=== PATIENT | female | born 2000 | race Caucasian/White ===

== ENCOUNTER 2025-01-04 12:42 | Emergency (ER) | payer OTHER, SELFPAY ==
[2025-01-04 12:48] VITALS: BP 148/65; PULSE 80; RESP 20; TEMP 37.1; O2SAT 100
--- NOTE | 2025-01-04 12:51 | ED.WOUNDLAC ---
HPI - Wound/Laceration General Chief Complaint: Wound/Laceration Stated Complaint: Wound Check Time Seen by Provider: 01/04/25 12:53 Source: patient Mode of arrival: ambulatory Limitations: no limitations History of Present Illness HPI narrative: 24 y/o female presented for concern of an itchy red rash and discharge around her new site. Says she had the surgery 10 days ago, and noticed itching and foul odor to discharge yesterday. Denies significant pain, vomiting, or fever. Says she has chronic nausea r/t gall bladder. Pt has no plan to follow up with the Obgyn who performed the surgery, stating he is in [place] and she cannot get transportation there. Related Data Home Medications ?Medication ?Instructions ?Recorded ?Confirmed ?Last Taken ?Type docusate sodium 100 mg capsule mg PO 01/04/25 Unknown History famotidine 40 mg tablet mg 01/04/25 Unknown History ferrous sulfate 325 mg (65 mg mg 01/04/25 Unknown History iron) tablet (FeroSul) hydrocodone 5 mg-acetaminophen 325 tablet 01/04/25 Unknown History mg tablet ibuprofen 600 mg tablet mg 01/04/25 Unknown History Allergies Allergy/AdvReac Type Severity Reaction Status Date / Time No Known Allergies Allergy Verified 01/04/25 12:55 Review of Systems Review of Systems: CONSTITUTIONAL: Denies body aches, fever, chills, or sweats. EYES: Denies visual changes, redness, or discharge. ENT: Denies rhinorrhea, congestion CARDIOVASCULAR: Denies chest pain, palpitations, or edema. RESPIRATORY: Denies cough or dyspnea. GASTROINTESTINAL: Denies abdominal pain, nausea, vomiting, or diarrhea. SKIN: per HPI MUSCULOSKELETAL: Denies back pain, joint pain, or myalgia. NEUROLOGIC: Denies headache, numbness, tingling, or weakness. PMFSH Comments At time of signature, I have reviewed and agree with nursing past medical, surgical, social and family history unless otherwise noted. Please see nursing chart for further information. There is no relevant family history pertinent to the presenting complaint Exam Narrative: GENERAL: Well-appearing HEAD: Normocephalic, atraumatic. EYES: conjunctivae clear, and EOMI. ENT: Mucous membranes moist. Oropharynx without edema, erythema or lesions. NECK: Supple. No lymphadenopathy CHEST: Clear to auscultation. HEART: Regular rate and rhythm. SKIN: Warm, dry. low mid abdomen with surgical incision c/w reported c--section, scant serous malodorous drainage from incision, light erythema extending from the incision approx 5cm x 14 cm across low abd, firm, c/w cellulitis. Erythematous excoriated area distal to surgical site approx 8cm x 3 cm c/w yeast. NEURO: Alert and oriented x3. Course Course Emergency Course: Patient is aware of diagnosis, understands and agrees to treatment plan. Anticipatory guidance given. Patient agrees to follow-up as directed and is aware of reasons to seek care at the emergency department. Portions of this record may have been created with voice recognition software Level of Care: Express Care Visit Vital Signs Vital signs: Reviewed Transfer Transfered to: [facility] Transportation: Other ( Private vehicle) Transfer rationale: Pt is agreeable to transfer. Requests transfer to [facility] via private vehicle. Risks of transportation reviewed with pt including injury, worsening of condition and . v/u. Sister will be driving pt; Report called to hospital, spoke with Kirk HENRY, Dr Berger, accepting physician. Pt is in stable condition at time of transfer. Advised to remain NPO and go directly to the hospital. MDM - Wound/Laceration MDM Narrative Medical decision making narrative: Pt presented with possible infection and rash to c--section site. She does not have pcp or obgyn. Advised ER transfer. Differential Diagnosis Differential diagnosis: Likely other (cellulitis, abscess, candidiasis, folliculitis, impetigo) Discharge Plan Discharge Clinical Impression: Cellulitis Patient Disposition: Acute Care Hospital Condition: Stable Patient Language: Bruneian Follow-up/Referrals: PHYSICIAN,DEGREASER [Primary Care Provider] - Time of Disposition: 13:13
--- OUTSIDE RECORDS SUMMARY | 2025-01-04 13:38 | XMS_ITS | Clinical Summary ---
Author Organization [facility] Address [address] [place] [address] Care Team Providers Care Senior Hydrogeologist Name Role Phone Unknown, Notinfile Primary Care Provider Unavail able Allergies No known active allergies Medications aspirin 81 mg chewable tablet Take 1 tablet (81 mg total) by mouth daily Active vit 02-pslc-fovba-d ng 27mg iron- 800 mcg-250 mg capsule Take 1 capsule by mouth daily Active famotidine (PEPCID) 40 mg tablet Take 1 tablet (40 mg total) by mouth daily Active sucralfate (CARAFATE) 1 gram tablet Take 1 tablet (1 g total) by mouth 4 (four) times a day as needed (gallbladder pain) Active docusate sodium (COLACE) 100 mg capsuleIndicati ons:constipatio n Take 1 capsule (100 mg total) by mouth 2 (two) times a day 14 capsule 12/25/2024 Active ferrous sulfate 325 mg (65 mg of elemental iron) tabletIndicatio ns:Iron Deficiency Anemia Take 1 tablet (325 mg total) by mouth daily 30 tablet 2 12/26/2024 Active HYDROcodone-matias taminophen (NORCO) 5-325 mg per tabletIndicatio ns:Pain Take 1 tablet by mouth every 4 (four) hours as needed for pain 20 tablet 12/25/2024 Active ibuprofen (ADVIL,MOTRIN) 600 mg tablet Take 1 tablet (600 mg total) by mouth every 6 (six) hours as needed for pain 40 tablet 12/25/2024 Active Active Problems Problem Noted Date Diagnosed Date Encounter for elective induction of labor 2024 Encounters Date Type Department Care Team Description 12/23/2024 4:00 PM CDT - 12/23/2024 5:40 [place] [address] Nito Talley DO SECTION 12/23/2024 3:20 [place] [address] Stanley Erwin MD Lawrence, Ashley Nicole, CRNA 12/22/2024 8:10 PM CDT - 12/25/2024 1:30 PM [place] [address] Vita Louis MD Discharge Disposition: Discharge to home or self care 12/21/2024 1:30 PM CDT - 12/21/2024 11:59 PM CDT Hospital Encounter [address] [address] Discharge Disposition: Discharge to home or self care 12/17/2024 1:20 PM CDT - 12/17/2024 5:40 PM CDT Hospital Encounter [address] [address] Lesley Hazel MD Hardman, Jamie Lynnette, MD Discharge Disposition: Discharge to home or self care 12/07/2024 11:44 PM CDT - 12/08/2024 1:30 AM CDT Hospital Encounter [facility] and [address] [address] Lesley Hazel MD Discharge Disposition: Discharge to home or self care 12/04/2024 6:50 PM CDT - 12/04/2024 8:35 PM CDT Hospital Encounter [address] [address] Lesley Hazel MD Discharge Disposition: Discharge to home or self care from Last 3 Months Medical History Medical History Date Comments Gallstones Asthma allergy-induced, last use of albuterol inhaler more than 1 year ago Social History Tobacco Use Types Packs/Day Years Used Date Smoking Tobacco: Never Smokeless Tobacco: Never Tobacco Cessation:Counseling Given: Not Answered Social Connection and Isolation Panel [NHANES] A nswer Date Recorded In a typical week, how many times do you talk on the phone with family, friends, or neighbors? Three times a week 12/23/19 How often do you get togethe r with friends or relatives? Three times a week 12/22/2024 How often do you attend chur ch or rastafarian services? Never 12/22/2024 Do you belong to any clubs o r organizations such as jain groups, unions, fraternal or athletic groups, or school groups? No 12/22/2024 How often do you attend meet ings of the clubs or organizations you belong to? Never 12/22/2024 Are you , , di vorced, , never , or living with a partner? Living with partner 12/22/2024 AUDIT-C Answer Date Recorded Q1: How often do you have a drink containing alcohol? Never 12/22/2024 Q2: How many drinks containi ng alcohol do you have on a typical day when you are drinking? Patient does not drink Q3: How often do you have si x or more drinks on one occasion? Never 12/22/2024 Overall Financial Resource Strain (CARDIA) Answe r Date Recorded How hard is it for you to pa y for the very basics like food, housing, medical care, and heating? Not hard at all 12/22/2024 PHQ-2 Answer Date Recorded PHQ-2 Total Score (If total score is 3 or more points, staff should administer the PHQ-9) 0 12/17/2024 [facility] - Occupational Stress Questionnaire Answer Date Recorded Do you feel stress - tense, restless, nervous, or anxious, or unable to sleep at night because your mind is troubled all the time - these days? Not at all 12/22/2024 Exercise Vital Sign Answer Date Recorde d On average, how many days pe r week do you engage in moderate to strenuous exercise (like a brisk walk)? 0 days 12/22/2024 On average, how many minutes do you engage in exercise at this level? 0 min 12/22/2024 Hunger Vital Sign Answer Date Recorded Within the past 12 months, y ou worried that your food would run out before you got the money to buy more. Never true 12/23/19 25 Within the past 12 months, t he food you bought just didn't last and you didn't have money to get more. Never true 12/22/2024 PRAPARE - Transportation Answer Date Re corded In the past 12 months, has l ack of transportation kept you from medical appointments or from getting medications? No 12/07 In the past 12 months, has l ack of transportation kept you from meetings, work, or from getting things needed for daily living? No 12/22/2024 [place] Depression Scale Answer Date Recorded [place] Depression Scale Total 4 12/25/2024 The thought of harming myself has occurred to me . Never 12/25/2024 PHQ-9 Answer Date Recorded PHQ-9 Total Score 0 12/08/2024 Housing Stability Vital Sign Answer Slava e Recorded In the last 12 months, was t here a time when you were not able to pay the mortgage or rent on time? No 12/22/2024 In the past 12 months, how m any times have you moved where you were living? 1 12/22/2024 At any time in the past 12 m [facility], were you homeless or living in a half-way (including now)? No 12/22/2024 Personal Safety Answer Date Recorded Have you ever been in or are you currently in a harmful physical or emotional relationship or is someone making you feel afraid or unsafe? Denies 12/22/2024 Comments No Sex and Gender Information Value Date Recorded Sex Assigned at Not on file Legal Sex Female 9:56 AM CDT Gender Identity Not on file Sexual Orientation Not on file Obstetrics History Para Term AB IAB SAB Ectopic Multiple Livin g Live Births 1 1 1 0 0 0 0 0 0 1 1 Date Outcome GA Total Labor Labor/2nd/3rd Weight Sex Type Anes PTL Galilea A1 A5 Name Clin 2024 Term 40w 0d 0h 02m 0h 02m 3.43 kg (7 lb 9 oz) M C-Sec tion Epidur al N Livin g 8 9 Jesus Lopez DO Complications: Intolera nce,Failure to Progress in First Stage Delivery Location:[facility] ([facility] L AND D PROCEDURE) Summary Episode Dates Number of Fetuses Estimated Date of Delivery 12/07/2024 - Present (01/04/2025) 1 12/23/2024 (set by Damian Sheets, RN on 12/08/2024 based on Other Basis) Dating Summary Based On WILMAN GA Diff Other Basis 12/23/2024 Working Patient Reported 12/26/2024 -3d Overview and Plan :Dyson Delivery Plans Planned delivery method:Vaginal Planned delivery location:[facility] Vitals Pregravid Weight Height TWG (As of 01/04/2025) Pregrav id BMI 160 cm (5' 3 ) Date GA Fund Present FHR Mvmt BP Weight Edema Alb Glu Ket Dil/ Eff/Sta 4 15w6d Inpatient data not displayed here. See encounter summary. 5 37w2d Inpatient data not displayed here. See encounter summary. 5 37w6d Inpatient data not displayed here. See encounter summary. 5 39w1d Inpatient data not displayed here. See encounter summary. 5 40w0d Inpatient data not displayed here. See encounter summary. Notes Progress Notes - Hospital En counter - 12/25/2024 - GA:40w0d 12/24/2024 - 40w0d - Nito Billings MD Progress Note: 12/24/2024 8:10 AM Subjective: Patient is feeling well, pain adequately controlled, and ambulating. Objective: Vitals: 12/23/24 19512/23/24 2340 12/23/24 23412/24/24 033 BP: 139/84 132/67 142/83 Pulse: 64 67 67 71 Resp: 20 20 Temp: 36.8 C (98.2 F) 36.7 C (98 F) 36.9 C (98.4 F) TempSrc: Oral Oral Oral SpO2: 97% 99% Weight: Height: Intake/Output Summary (Last 24 hours) at 12/24/2024 0810 Last data filed at 12/24/2024 0400 Gross per 24 hour Intake -- Output 1795 ml Net -1795 ml Exam: General: alert, cooperative, no distress Bowel Sounds: active Uterine Fundus: Uterus firm and 3 fingerbreadths below umbilicus, appropriate tenderness Incision: healing well, no significant drainage, no dehiscence, no significant erythema, DVT Evaluation: No evidence of DVT seen on physical exam., pretibial edema 1 + Data: Lab Results Component Value Date WBC 15.39 (H) 12/22/2024 HGB 12.2 12/22/2024 LABPLAT 293 12/22/2024 CREATININE 0.67 12/22/2024 GLUCOSE 138 12/22/2024 POTASSIUM 3.8 12/22/2024 ALT 9 12/22/2024 AST 15 12/22/2024 Cbc pendomg Assessment: Post-op day 1. Single intrauterine at 40 weeks with nonreassuring heart tones and does not gotten past 4 cm she was brought in for an induction and had artificial rupture membranes with Pitocin augmentation and a very narrow pelvis recommendation is to do a repeat with her 2nd 1 Complications: none The patient feels well. Pain is well controlled with current medications. Urinary output is adequate. Patient is ambulating well. Patient is tolerating a regular diet. Flatus has been passed. Plan: Routine Post Op Care Encourage Ambulation Advance Diet Nito Billings MD there is a comment from 12/23/2024 - 40w0victorino - Chavo Barth MD JULIETA RN notified me of FHR deceleration and I was requested to come to bedside. On the way I asked OF tech to pull for stat . Upon arrival to pts room FHR deceleration to the 80s w/ good variability previously and recovering. Deceleration lasted 6 minutes. music historian was on the phone w/ Dr Talley. He is coming in to do pLTCS. Discussed w/ pt and SO with decelerations can't increase Pit and she has been 4 cm for several hours need to proceed w/ pLTCS FHR did recover and reassuring. Proceeding w/ pLTCS, further orders per Dr Talley who is managing pt. 12/23/2024 - 40w0d - Chavo Barth MD 24 yo G1 w/ IUP @ 40.0 here for eIOL. Called by RN for back and neck pain and pt unable to move her neck. RN called Dr Talley, and then called me to assess pt. SHe has known gallbladder disease poc lap virgilio after 6 weeks pp. When I went into pts room she was on her right side moving her head and neck and in no acute distress. RN stated you look like your feeling better now compared to when I left the room last. Pt confirmed she is feeling better. She reports back pain between her shoulder blades and just below shoulder blades midline. Similar location as pain in the past just more intense today. Denies RUQ pain. Pt has epidural and c/o pain while I was in the room from the owens cathter. FHR when I went into the room Category I had a decel while I was in the room which resolved w/ positional changes and recovered to category I FHR. SVE 4 cm since ~ 6:30 am today. CMP reviewed no transaminitis. No tenderness RUQ nor upper back in the midline on exam. Since pt able to move her head and neck and confirming upper back pain is improved further orders per Dr Talley who is managing pt. Progress Notes - Hospital En counter - 12/17/2024 - GA:39w1d 12/17/2024 - 39w1d - John Ellis MD [facility] Labor Progress Note S: Patient reports moderately painful contractions. O: BP 115/55 Pulse 73 Temp 37 C (98.6 F) (Temporal) Resp 18 Ht 160 cm (5' 3 ) Wt 120.2 kg (265 lb) BMI 46.94 kg/m Abdomen: soft, non-tender Extremities: non-tender Cervix: 2.5 cm dilated, 50% effaced, -3 station, cervical position Mid- posterior, consistency Moderately firm, presenting part cephalic, time of last check: 1717 FHT: External Monitor - Baseline: 140s bpm, Variability: Moderate (Between 6 and 25 BPM), Accelerations: Acceleration 15x15, Decelerations: none [place]: external., 4-5 contractions per 10 minutes. A/P: Jennifer Grace is a 24 y.o. at 39w1d admitted for painful contractions - GBS unknown - Induction of Labor: not required - Labor Augmentation: not applicable at this time - SVE: 2.5/50/-3 Rivers Score: 2 - FHT: Category I reassuring. - TOCO: regular contractions - Pain Control: natural methods Plan: Patient is not having cervical changes and vitals are stable. Will discharge. Plan discussed with Dr. Inge Ellis MD Family Medicine PGY-1 [facility] Family Medicine Residency Cosigned by Cachorro Alcazar MD at 12/18/2024 10:40 AM CDT Associated attestation - Cachorro Alcazar MD - 12/18/2024 10:40 AM CDT I have seen and examined the patient on 12/17/2024. I agree with the findings and plan of care as documented in the resident's/fellow's note.. Last Filed Vital Signs Vital Sign Reading Time Taken Comments Blood Pressure 130/68 12/25/2024 5:43 AM CDT Pulse 70 12/25/2024 5:43 AM CDT Temperature 36.8 C (98.3 F) 12/25/2024 5:43 AM CDT Respiratory Rate 20 12/25/2024 5:43 AM CDT Oxygen Saturation 99% 12/25/2024 5:43 AM CDT Inhaled Oxygen Concentration - - Weight 120.2 kg (265 lb) 12/22/2024 8:28 PM CDT Height 160 cm (5' 3 ) 12/22/2024 8:28 PM CDT Body Mass Index 46.94 12/22/2024 8:28 PM CDT Plan of Treatment Health Maintenance Due Date Last Done Comments Cervical Cancer Screening 2000 Chlamydia and Gonorrhea (GC/ CT) Screening 2000 Regular Well Visit/Exam 18-64 2018 Covid-19 Vaccine (2023-10 5 season) 2024 12/02/2020, 11/01/2020 Depression Screening 12/25/2025 12/25/2024, 12/08/2024, 12/07/2024, Additional history exists DTaP/Tdap/Td Vaccine (9 - Td or Tdap) 11/22/2034 11/22/2024, 05/21/2019, 09/14/2012, Additional history exists Pneumococcal vaccine <65 Completed 002, 04/09/2001, 02/06/2001, Additional history exists Hepatitis B Screening Completed 11/15/2003 , 04/09/2001, 04/09/2001, Additional history exists Varicella Vaccines Completed 11/23/2008, 0 11/15/2003, 06/14/2002, Additional history exists HPV Vaccines Completed 07/21/2019, 10/09, 09/14/2012 Hepatitis C Screening Completed 07/15/2024 Influenza Vaccine Completed 11/22/2024, , 06/08/2018, Additional history exists Procedures Procedure Name Priority Date/Time Associated Diagnosis Comments CBC WITHOUT DIFFERENTIAL Routine 12/24/2024 8:46 AM CDT CBC WITHOUT DIFFERENTIAL Routine 12/24/2024 7:25 AM CDT SECTION 12/23/2024 4:05 PM CDT Intolerance of Labor Failure to Progress ND AN PROCEDURE PLACEHOLDER Routine 12/23/2024 3:35 AM CDT EGFR Routine 12/22/2024 8:44 PM CDT DIFFERENTIAL AUTO STAT 12/22/2024 8:4 4 PM CDT ANTIBODY SCREEN STAT 12/22/2024 8:44 PM CDT ABO/RH STAT 12/22/2024 8:44 PM CDT COMPREHENSIVE METABOLIC PANEL Routine 12/22/2024 8:44 PM CDT CBC WITH AUTO DIFFERENTIAL STAT 12/22/2024 8:44 PM CDT TYPE AND SCREEN STAT 12/22/2024 8:44 PM CDT RPR Routine 12/22/2024 8:44 PM CDT URINALYSIS, MICROSCOPIC ONLY Routine 12/17/2024 1:51 PM CDT URINE CULTURE Routine 12/17/2024 1:51 PM CDT URINALYSIS AND REFLEX TO MICROSCOPIC AND CULTURE Routine 12/17/2024 1:51 PM CDT URINALYSIS, MICROSCOPIC ONLY STAT 12/08/2024 12:10 AM CDT PAMG-1 PROTEIN MARKER (ROM) STAT 12/08/2024 12:10 AM CDT URINE CULTURE STAT 12/08/2024 12:10 AM CDT URINALYSIS AND REFLEX TO MICROSCOPIC AND CULTURE STAT 12/08/2024 12:10 AM CDT URINALYSIS, MICROSCOPIC ONLY STAT 12/04/2024 7:19 PM CDT URINE CULTURE STAT 12/04/2024 7:19 PM CDT URINALYSIS AND REFLEX TO MICROSCOPIC AND CULTURE STAT 12/04/2024 7:19 PM CDT GROUP B STREPTOCOCCUS CULTURE Routine 11/22/2024 RPR Routine 10/15/2024 HEPATITIS B SURFACE ANTIGEN Routine 10/15/2024 HIV 1/2 ANTIBODY PLUS P24 ANTIGEN Routine 10/15/2024 HEPATITIS C ANTIBODY Routine 07/15/2024 from Last 3 Months or Most Recently Relevant to Health Maintenance Results * (ABNORMAL) CBC without differential (12/24/2024 8:46 AM CDT) WBC 13.39(H) 3.80 - 9.90 K/cumm Comment:Testing performed by : [address] [address] Hgb 10.5(L) 11.9 - 15.5 g/dL ANGELA Comment:Testing performed by : [address] [address] Hct 31.3(L) 35.6 - 45.5 % ANGELA Comment:Testing performed by : [address] [address] Plt 237 150 - 400 K/cumm ANGELA Comment:Testing performed by : [address] [address] MPV 11.1 9.1 - 12.3 fL ANGELA Comment:Testing performed by : [address] [address] RBC 3.48(L) 3.90 - 5.20 M/cumm ANGELA Comment:Testing performed by : [address] [address] MCV 89.9 81.3 - 96.4 fL ANGELA Comment:Testing performed by : [address] [address] MCH 30.2 27.1 - 33.3 pg ANGELA Comment:Testing performed by : [address] [address] MCHC 33.5 32.3 - 35.7 g/dL ANGELA CAMPBELL Comment:Testing performed by : [address] [address] RDW CV 14.0 11.1 - 14.9 % ANGELA CAMPBELL Comment:Testing performed by : [address] [address] RDW SD 45.5 35.7 - 48.1 fL ANGELA CAMPBELL Comment:Testing performed by : [address] [address] NRBC abs 0.00 0.00 - 0.01 K/cumm ANGELA CAMPBELL Comment:Testing performed by : [address] [address] Blood 12/24/2024 8:46 AM CDT 12/24/2024 9:34 AM CDT Nito Billings MD LAB BLOOD ORDERABLES Fin al Result [place] [id number] [facility] Department [place] [address] * (ABNORMAL) CBC without differential (12/24/2024 7:25 AM CDT) [facility] WBC 12.71(H) 3.80 - 9.90 K/cumm Comment:Testing performed by : [address] [address] Hgb 10.1(L) 11.9 - 15.5 g/dL ANGELA CAMPBELL Comment:Testing performed by : [address] [address] Hct 30.6(L) 35.6 - 45.5 % ANGELA CAMPBELL Comment:Testing performed by : [address] [address] Plt 220 150 - 400 K/cumm ANGELA CAMPBELL Comment:Testing performed by : [address] [address] MPV 11.1 9.1 - 12.3 fL ANGELA CAMPBELL Comment:Testing performed by : [address] [address] RBC 3.39(L) 3.90 - 5.20 M/cumm ANGELA CAMPBELL Comment:Testing performed by : [address] [address] MCV 90.3 81.3 - 96.4 fL ANGELA Comment:Testing performed by : [address] [address] MCH 29.8 27.1 - 33.3 pg ANGELA Comment:Testing performed by : [address] [address] MCHC 33.0 32.3 - 35.7 g/dL ANGELA CAMPBELL Comment:Testing performed by : [address] [address] RDW CV 13.9 11.1 - 14.9 % ANGELA Comment:Testing performed by : [address], [address] RDW SD 46.0 35.7 - 48.1 fL ANGELA Comment:Testing performed by : [address] [address] NRBC abs 0.00 0.00 - 0.01 K/cumm ANGELA Comment:Testing performed by : [address] [address] Blood 12/24/2024 7:25 AM CDT 12/24/2024 8:43 AM CDT us Nito Talley DO LAB BLOOD ORDERABLES Fi nal Result ANGELA [address] [facility] Department [place] [address] * ND AN PROCEDURE PLACEHOLDER (12/23/2024 3:35 AM CDT) Narrative Elizabeth Mcelroy CRNA - 12/23/2024 3:35 AM CDT Elizabeth Mcelroy CRNA 12/23/2024 3:35 AM Epidural Block Patient location: L&D Reason for block: labor analgesia Staff: Placed by: DOOR SERVICEMAN: Elizabeth Mcelroy CRNA Procedure prep: Preprocedure checklist: patient identified, procedure contraindications assessed, procedure consent obtained, surgical consent, IV checked, risks, benefits and alternatives discussed, monitors and equipment checked and timeout performed Patient Position: sitting Procedure performed while patient: awake Monitoring: ECG, oximetry and blood pressure Prep solution: iodine povacrylex PPE: provider hat/mask and sterile gloves Skin infiltrated with lidocaine 1%: yes Epidural: Approach: midline Location: L3-4 Number of attempts:1 Epidural needle: Injection technique: RASHARD saline Needle type: Tuohy Needle gauge: 17 G Needle length: 9 cm Loss of resistance: 9 cm Catheter: Catheter type: multi-orifice. Catheter at skin depth: 14 cm Negative aspiration of blood: no Negative aspiration of CSF: no Test dose: negative Assessment: Sensory level - left: full eval pending Sensory level - right: full eval pending Events: patient tolerated procedure well with no complications us Hair Singh MD ANESTHESIA ORDERABLES Final R esult * eGFR (12/22/2024 8:44 PM CDT) eGFR >90 >=60 mL/min/1. 73 m2 Comment: Interpretive Data Reference Interval Normal >/= 90 mL/min/1.73m2 Mildly decreased* 60 - 89 mL/min/1.73m2 Mildly to moderately decreased 45 - 59 mL/min/1.73m2 Moderately to severely decreased 30 - 44 mL/min/1.73m2 Severely decreased 15 - 29 mL/min/1.73m2 Kidney Failure < 15 mL/min/1.73m2 *Relative to young adult level Estimated glomerular filtration rate is determined by the 2020 CKD-EPI equation recommended by the National Kidney Foundation (A Unifying Approach to GFR Estimation: Recommendations of the NKF-ASK Task Force on Reassessing the Inclusion of Race in Diagnosing Kidney Disease, JASN 2020). The CKD-EPI equation should not be used for patients with unstable renal function and has not been validated in children and those over 70. Current interpretive data was last reviewed 2021. Testing performed by: [facility], [address] [place] [address]., [address] Blood 12/22/2024 8:44 PM CDT 12/22/2024 8:51 PM CDT us Vita Louis MD LAB BLOOD ORDERABLES Tash guillermo Result ANGELA [address] [facility] Department [place] [address] * (ABNORMAL) Differential, auto (12/22/2024 8:44 PM CDT) Neutrophil abs 11.81(H) 1.50 - 6.50 K/cumm Comment:Testing performed by : [address] [address] Imm gran abs 0.09 0.00 - 0.10 K/cumm ANGELA Comment:Testing performed by : [address] [address] Lymphocyte abs 2.56 0.80 - 3.30 K/cumm ANGELA Comment:Testing performed by : [address] [address] Monocyte abs 0.80 0.20 - 0.80 K/cumm ANGELA Comment:Testing performed by : [address] [address] Eosinophil abs 0.09 0.00 - 0.50 K/cumm ANGELA Comment:Testing performed by : [address] [address] Basophil abs 0.04 0.00 - 0.10 K/cumm ANGELA Comment:Testing performed by : [address] [address] Neutrophil pct 76.7 % ANGELA Comment: Interpretive Data Percent cell count reference ranges are not reported, since discordance with absolute values may lead to misinterpretation of CBC data. Current Interpretive Data was last revised on 2017. Testing performed by: [address] [address] Imm gran pct 0.6 % ANGELA Comment: Interpretive Data Percent cell count reference ranges are not reported, since discordance with absolute values may lead to misinterpretation of CBC data. Current Interpretive Data was last revised on 2017. Testing performed by: [address] [address] Lymphocyte pct 16.6 % [facility] Comment: Interpretive Data Percent cell count reference ranges are not reported, since discordance with absolute values may lead to misinterpretation of CBC data. Current Interpretive Data was last revised on 2017. Testing performed by: [address] [address] Monocyte pct 5.2 % [facility] Comment: Interpretive Data Percent cell count reference ranges are not reported, since discordance with absolute values may lead to misinterpretation of CBC data. Current Interpretive Data was last revised on 2017. Testing performed by: [address] [address] Eosinophil pct 0.6 % [facility] Comment: Interpretive Data Percent cell count reference ranges are not reported, since discordance with absolute values may lead to misinterpretation of CBC data. Current Interpretive Data was last revised on 2017. Testing performed by: [address] [address] Basophil pct 0.3 % [facility] Comment: Interpretive Data Percent cell count reference ranges are not reported, since discordance with absolute values may lead to misinterpretation of CBC data. Current Interpretive Data was last revised on 2017. Testing performed by: [address] [address] Blood 12/22/2024 8:44 PM CDT 12/22/2024 8:51 PM CDT us Nito Talley DO LAB BLOOD ORDERABLES Fi nal Result ANGELA CAMPBELL [address] [facility] Department [place] [address] * (ABNORMAL) CBC with auto differential (12/22/2024 8:44 PM CDT) WBC 15.39(H) 3.80 - 9.90 K/cumm Comment:Testing performed by : [address] [address] Hgb 12.2 11.9 - 15.5 g/dL ANGELA Comment:Testing performed by : [address] [address] Hct 35.8 35.6 - 45.5 % ANGELA Comment:Testing performed by : [address] [address] Plt 293 150 - 400 K/cumm ANGELA Comment:Testing performed by : [address] [address] MPV 10.9 9.1 - 12.3 fL ANGELA Comment:Testing performed by : [address], [address] RBC 4.05 3.90 - 5.20 M/cumm ANGELA Comment:Testing performed by : [address] [address] MCV 88.4 81.3 - 96.4 fL ANGELA Comment:Testing performed by : [address] [address] MCH 30.1 27.1 - 33.3 pg ANGELA Comment:Testing performed by : [address] [address] MCHC 34.1 32.3 - 35.7 g/dL ANGELA Comment:Testing performed by : [address] [address] RDW CV 13.9 11.1 - 14.9 % ANGELA Comment:Testing performed by : [address] [address] RDW SD 44.9 35.7 - 48.1 fL ANGELA Comment:Testing performed by : [address] [address] NRBC abs 0.00 0.00 - 0.01 K/cumm ANGELA Comment:Testing performed by : [address] [address] Blood 12/22/2024 8:44 PM CDT 12/22/2024 8:51 PM CDT Nito Talley LAB BLOOD ORDERABLES Fi nal Result Performing Organization Address [facility] de Phone Number [address] [place] [place] [address] * ABO/Rh (12/22/2024 8:44 PM CDT) Pathologist [facility] ABO/Rh B Positive Comment:Testing performed by : [address] [address] Blood 12/22/2024 8:44 PM CDT 12/22/2024 8:51 PM CDT Narrative ANGELA - 12/22/2024 9:23 PM CDT Has the patient had Daratumumab or Isatuximab in the past 6 months?->Unknown Nito Talley DO LAB BLOOD BANK TEST ORD ERABLES Final Result Performing Organization Address [facility] de Phone Number [address] [place] [place] [address] * RPR Blood (12/22/2024 8:44 PM CDT) [facility] RPR Nonreactive Nonreactive Comment:Testing performed by : [facility], [address] [facility] [place]., [address] Blood 12/22/2024 8:4 4 PM CDT 12/23/2024 12:52 AM CDT Nito Talley DO LAB MICROBIOLOGY - GENE RAL ORDERABLES Final Result Performing Organization Address [facility] Co de Phone Number [address] [place] [employer] [place] [address] * Antibody screen (12/22/2024 8:44 PM CDT) Pathologist [facility] Ish, indirect, Gel Interpretation Negative ABSC Comment:Testing performed by : [address] [address] Blood 12/22/2024 8:44 PM CDT 12/22/2024 8:51 PM CDT Narrative ANGELA - 12/22/2024 9:28 PM CDT Has the patient had Daratumumab or Isatuximab in the past 6 months?->Unknown Nito Talley DO LAB BLOOD BANK TEST ORD ERABLES Final Result ANGELA [address] [facility] Department [place] [address] * (ABNORMAL) Comprehensive metabolic panel (12/22/2024 8:44 PM CDT) Sodium 134(L) 135 - 145 mmol/L Comment:Testing performed by : [address] [address] Potassium, pl 3.8 3.3 - 4.9 mmol/L ANGELA Comment:Testing performed by : [address] [address] Chloride 104 97 - 110 mmol/L ANGELA Comment:Testing performed by : [address] [address] CO2 19(L) 22 - 32 mmol/L ANGELA Comment:Testing performed by : [address] [address] Anion gap 11 2 - 15 mmol/L ANGELA Comment:Testing performed by : [address] [address] BUN 4(L) 6 - 25 mg/dL ANGELA Comment:Testing performed by : [address] [address] Creatinine 0.67 0.60 - 1.10 mg/dL ANGELA Comment:Testing performed by : [address] [address] Glucose 138 70 - 199 mg/dL ANGELA Comment: Interpretive Data Fasting glucose >/= 126 mg/dl is diagnostic for diabetes. Fasting is defined as no caloric intake for at least 8 hours. Fasting glucose between 100 mg/dl to 125 mg/dl is diagnostic of prediabetes. In a patient with classic symptoms of hyperglycemia or hyperglycemic crisis, a random glucose >/= 200 mg/dl is diagnostic for diabetes. In the absence of unequivocal hyperglycemia, results should be confirmed by repeat testing. The classification and Diagnosis of Diabetes Diabetes Care 2021; 46: S19-S40. Current interpretive data was last revised 2022. Testing performed by: [address] [address] Calcium 9.3 8.5 - 10.3 mg/dL ANGELA Comment:Testing performed by : [address] [address] Bilirubin, total 0.2 0.1 - 1.2 mg/dL ANGELA Comment:Testing performed by : [address] [address] Protein, pl 6.3(L) 6.5 - 8.5 g/dL ANGELA Comment:Testing performed by : [address] [address] Albumin 3.3(L) 3.5 - 5.0 g/dL ANGELA Comment:Testing performed by : [address] [address] Alk phos 223(H) 40 - 130 Units/L ANGELA Comment:Testing performed by : [address] [address] ALT 9 7 - 45 Units/L ANGELA Comment:Testing performed by : [address] [address] AST 15 10 - 45 Units/L ANGELA Comment:Testing performed by : [address] [address] Blood 12/22/2024 8:44 PM CDT 12/22/2024 8:51 PM CDT us Vita Louis MD LAB BLOOD ORDERABLES Tash l Result ANGELA [address] [facility] Department [place] [address] * (ABNORMAL) Urinalysis reflex to microscopic and culture Urine, clean voided (12/17/2024 1:51 PM CDT) Color, ur Yellow Yellow Clarity, ur Clear Clear [facility] ([place]) Specific gravity, ur 1.026 1.003 - 1.030 [facility] ([place]) pH, urine 6.5 [facility] ([place]) Comment: Interpretive Data U rine pH is affected by diet, medications, systemic acid-base disturbances, and renal tubular function. pH may affect urinary stone formation. For example, urine pH below 6.0 may help reduce the tendency for calcium phosphate stones and pH greater than 6.0 may reduce the tendency for uric acid stone formation. Source: [facility] [employer] Current Interpretive Data was last revised on 2017 Protein, ur ql 1+(A) Negative [facility] ([place]) Glucose, ur ql Negative Negative [facility] ([place]) Ketones, ur 1+(A) Negative [facility] A ([place]) Bilirubin, ur Negative Negative [facility] ([place]) Blood, ur Negative Negative [facility] ([place]) Urobilinogen, ur <2.0 <2.0 mg/dL [facility] ([place]) Nitrite, ur Negative Negative [facility] ([place]) Leukocyte esterase, ur 3+(A) Negative [facility] ([place]) UA reflex comment Reflex to microscopic UA will be performed. [facility] ([place]) Urine, clean voided 12/17/2024 1:51 PM CDT 12/17/2024 1:57 PM CDT us Cachorro Alcazar MD LAB MICROBIOLOGY - GEN ERAL ORDERABLES Final Result ANGELA [facility] ([place]) [address] [facility] Department [place] [address] * (ABNORMAL) Urinalysis, microscopic only (12/17/2024 1:51 PM CDT) WBC, ur 11-20(A) 0 - 5 /HPF RBC, ur 0-2 0 - 2 /HPF [facility] ([place]) Epithelial cells, squamous, ur 11-20(A) 0 - 5 /HPF ANGELA [facility] ([place]) Mucous, ur Present(A) ANGELA Gonzalez ([place]) Culture Reflex Comment Reflex to urine culture will be performed. ANGELA [facility] ([place]) Urine, clean voided 12/17/2024 1:51 PM CDT 12/17/2024 1:57 PM CDT Cachorro Alcazar MD LAB URINE ORDERABLES F inal Result ANGELA [facility] ([place]) [address] [facility] [place] [address] * Urine culture Urine, clean voided (12/17/2024 1:51 PM CDT) Report Final Report: Less than 100,000 colonies/mL (clinically insignificant growth based on current clinical standards) Comment:Testing performed by : [facility], [address] [facility] [place]., [address] Organism (CLINICALLY INSIGNIFICANT GROWTH [facility] ([place]) Urine, clean voided 12/17/2024 1:51 PM CDT 12/17/2024 4:47 PM CDT Narrative [facility] ([place]) - 12/18/2024 5:44 PM CDT Urine culture reflexed based upon urinalysis results. Testing performed by [facility] Microbiology Laboratory ([phone]) Cachorro Alcazar MD LAB MICROBIOLOGY - GEN ERAL ORDERABLES Final Result ANGELA [facility] ([place]) [address] [facility] [place] [address] * ROM Plus (IGFBP-1/AFP) (12/08/2024 12:10 AM CDT) IFG Binding Protein-1 / AFP Negative Swab 12/08/2024 12:1 0 AM CDT 12/08/2024 12:20 AM CDT us Lesley Hazel MD LAB BODY FLUIDS AND STOOLS ORDERABLES Final Result Performing Organization Address City/[facility] Co de Phone Number ANGELA GAINES ([place]) [address] [facility] Department [place] [address] * (ABNORMAL) Urinalysis reflex to microscopic and culture Urine, clean voided (12/08/2024 12:10 AM CDT) Color, ur Yellow Yellow Clarity, ur Clear Clear [facility] ([place]) Specific gravity, ur 1.025 1.003 - 1.030 [facility] ([place]) pH, urine 7.0 [facility] ([place]) Comment: Interpretive Data U rine pH is affected by diet, medications, systemic acid-base disturbances, and renal tubular function. pH may affect urinary stone formation. For example, urine pH below 6.0 may help reduce the tendency for calcium phosphate stones and pH greater than 6.0 may reduce the tendency for uric acid stone formation. Source: [facility] [employer] Current Interpretive Data was last revised on 2017 Protein, ur ql 1+(A) Negative [facility] ([place]) Glucose, ur ql Negative Negative [facility] ([place]) Ketones, ur Negative Negative [facility] ([place]) Bilirubin, ur Negative Negative [facility] ([place]) Blood, ur Negative Negative [facility] ([place]) Urobilinogen, ur 4.0(A) <2.0 mg/dL [facility] ([place]) Nitrite, ur Negative Negative [facility] ([place]) Leukocyte esterase, ur 2+(A) Negative [facility] ([place]) UA reflex comment Reflex to microscopic UA will be performed. [facility] ([place]) Urine, clean voided 12/08/2024 12:10 AM CDT 12/08/2024 12:20 AM CDT us Lesley Hazel MD LAB MICROBIOLOGY - GENERAL ORDERABLES Final Result Performing Organization Address City/[facility]/ZIP Co de Phone Number ANGELA GAINES ([place]) [address] Department [place] [address] * (ABNORMAL) Urinalysis, microscopic only (12/08/2024 12:10 AM CDT) WBC, ur 11-20(A) 0 - 5 /HPF RBC, ur 0-2 0 - 2 /HPF [facility] ([place]) Epithelial cells, squamous, ur 1-5 0 - 5 /HPF [facility] ([place]) Bacteria, ur Trace(A) [facility] ([place]) Mucous, ur Present(A) [facility] ([place]) Sperm, ur Present(A) [facility] ([place]) Culture Reflex Comment Reflex to urine culture will be performed. ANGELA GAINES ([place]) Urine, clean voided 12/08/2024 12:10 AM CDT 12/08/2024 12:20 AM CDT us Lesley Hazel MD LAB URINE ORDERABLE S Final Result Performing Organization Address City/[facility] Co de Phone Number ANGELA GAINES ([place]) [address] [facility] [address] * Urine culture Urine, clean voided (12/08/2024 12:10 AM CDT) Report Final Report: Less than 100,000 colonies/mL (clinically insignificant growth based on current clinical standards) Comment:Testing performed by : [facility], [address] [facility] [place] [address] Organism (CLINICALLY INSIGNIFICANT GROWTH ANGELA GAINES ([place]) Urine, clean voided 12/08/2024 12:10 AM CDT 12/08/2024 2:35 AM CDT Narrative ANGELA GAINES ([place]) - 12/09/2024 7:28 AM CDT Urine culture reflexed based upon urinalysis results. Testing performed by [facility] Microbiology Laboratory ([phone]) us Lesley Hazel MD LAB MICROBIOLOGY - GENERAL ORDERABLES Final Result Performing Organization Address City/[facility]/ZIP Co de Phone Number ANGELA GAINES ([place]) [address] [facility] Department [place] [address] * (ABNORMAL) Urinalysis reflex to microscopic and culture Urine, clean voided (12/04/2024 7:19 PM CDT) Color, ur Yellow Yellow Clarity, ur Turbid(A) Clear [facility] ([place]) Specific gravity, ur 1.016 1.003 - 1.030 [facility] ([place]) pH, urine 6.5 [facility] ([place]) Comment: Interpretive Data U rine pH is affected by diet, medications, systemic acid-base disturbances, and renal tubular function. pH may affect urinary stone formation. For example, urine pH below 6.0 may help reduce the tendency for calcium phosphate stones and pH greater than 6.0 may reduce the tendency for uric acid stone formation. Source: [facility] [employer] Current Interpretive Data was last revised on 2017 Protein, ur ql Trace Negative [facility] ([place]) Glucose, ur ql Negative Negative [facility] ([place]) Ketones, ur Negative Negative [facility] ([place]) Bilirubin, ur Negative Negative [facility] ([place]) Blood, ur Negative Negative [facility] ([place]) Urobilinogen, ur <2.0 <2.0 mg/dL [facility] ([place]) Nitrite, ur Negative Negative [facility] ([place]) Leukocyte esterase, ur 4+(A) Negative [facility] ([place]) UA reflex comment Reflex to microscopic UA will be performed. [facility] ([place]) Urine, clean voided 12/04/2024 7:19 PM CDT 12/04/2024 7:38 PM CDT us Lesley Hazel MD LAB MICROBIOLOGY - GENERAL ORDERABLES Final Result ANGELA GAINES ([place]) [address] [facility] Department [place] [address] * (ABNORMAL) Urinalysis, microscopic only (12/04/2024 7:19 PM CDT) WBC, ur >50(A) 0 - 5 /HPF RBC, ur 0-2 0 - 2 /HPF [facility] ([place]) Epithelial cells, squamous, ur 11-20(A) 0 - 5 /HPF [facility] ([place]) Bacteria, ur 1+(A) [facility] ([place]) Mucous, ur Present(A) [facility] A ([place]) Culture Reflex Comment Reflex to urine culture will be performed. ANGELA [facility] ([place]) Urine, clean voided 12/04/2024 7:19 PM CDT 12/04/2024 7:38 PM CDT us Lesley Hazel MD LAB URINE ORDERABLE S Final Result ANGELA [facility] ([place]) [address] [facility] [employer] [place] [address] * Urine culture Urine, clean voided (12/04/2024 7:19 PM CDT) Report Final Report: Less than 100,000 colonies/mL (clinically insignificant growth based on current clinical standards) Comment:Testing performed by : [facility], [address] [facility] [place] [address] Organism (CLINICALLY INSIGNIFICANT GROWTH [facility] ([place]) Urine, clean voided 12/04/2024 7:19 PM CDT 12/04/2024 10:05 PM CDT Narrative ANGELA [facility] ([place]) - 12/06/2024 10:33 AM CDT Urine culture reflexed based upon urinalysis results. Testing performed by [facility] Microbiology Laboratory ([phone]) us Lesley Hazel MD LAB MICROBIOLOGY - GENERAL ORDERABLES Final Result ANGELA GAINES ([place]) [address] [facility] [employer] [place] [address] * Group B streptococcal culture (11/22/2024) SCRIBED Group B Strep Negative Negative Kiersten Owen LAB MICROBIOLOGY - GENERAL OR DERABLES Final Result * HIV 1/2 Antibody plus p24 Antigen Blood (10/15/2024) SCRIBED HIV P24 Nonreactive Nonreactive , Invalid Blood Kiersten Owen LAB MICROBIOLOGY - GENERAL OR DERABLES Final Result * RPR Blood (10/15/2024) SCRIBED RPR Non-Reacti ve Non-Reacti ve Blood [facility] - GENERAL OR DERABLES Final Result * Hepatitis B Surface Antigen Blood (10/15/2024) SCRIBED HBsAg Nonreactive Nonreactive , Invalid Blood [facility] LAB MICROBIOLOGY - GENERAL OR DERABLES Final Result * Hepatitis C antibody Blood (07/15/2024) SCRIBED HCV ab neg Blood [facility] - GENERAL OR DERABLES Final Result from Last 3 Months or Most Recently Relevant to Health Maintenance Insurance [place] [address] [facility] Advance Directives For more information, please contact: [phone] * Full Code (Latest Code Status on File) Date Activated Date Inactivated Comments 12/23/2024 5:21 PM 12/25/2024 5:35 PM * Full Code Date Activated Date Inactivated Comments 12/22/2024 8:14 PM 12/23/2024 5:21 PM Full CPR in case of cardiopulmonary arrest Care Teams Senior Hydrogeologist Relationship Specialty Start Date End Date Unknown, Notinfile PCP - General 03/28/21
--- OUTSIDE RECORDS SUMMARY | 2025-01-04 13:38 | XMS_ITS | Referral Summary ---
Author Organization [facility] Address [address] [place] [id number] Care Team Providers Care Route Sales Specialist Name Role Phone Unknown, Notinfile Primary Care Provider Unavail able Encounters Date Type Department Care Team Description 12/22/2024 8:10 PM CDT - 12/25/2024 1:30 PM [place] [address] Vita [place] MD Discharge Disposition: Discharge to home or self care 12/23/2024 4:00 PM CDT - 12/23/2024 5:40 PM CDT Surgery [place] [id number] Nito Talley, SECTION 12/23/2024 3:20 AM [place] [address] Stanley Erwin MD Lawrence, Ashley Nicole, CRNA 12/21/2024 1:30 PM CDT - 12/21/2024 11:59 PM CDT Hospital Encounter [address] [address] Discharge Disposition: Discharge to home or self care 12/17/2024 1:20 PM CDT - 12/17/2024 5:40 PM CDT Hospital Encounter [facility] [address] [place] [address] Lesley Hazel MD Hardman, Jamie Esme, MD Discharge Disposition: Discharge to home or self care 12/07/2024 11:44 PM CDT - 12/08/2024 1:30 AM CDT Hospital Encounter [address] [address] Lesley Hazel MD Discharge Disposition: Discharge to home or self care 12/04/2024 6:50 PM CDT - 12/04/2024 8:35 PM CDT Hospital Encounter [address] [address] Lesley Hazel MD Discharge Disposition: Discharge to home or self care from Last 3 Months Allergies No known active allergies Medications aspirin 81 mg chewable tablet Take 1 tablet (81 mg total) by mouth daily Active vit [id number]-d ng 27mg iron- 800 mcg-250 mg capsule [...] Encounter for elective induction of labor 2024 Social History Tobacco Use Types Packs/Day Years [...] often do you attend chur ch or catholic services? Never 12/22/2024 Do you belong to any clubs o r organizations such as zoroastrian groups, unions, fraternal or athletic groups, or [...] staff should administer the PHQ-9) 0 12/17/2024 [facility] - Occupational Stress [...] things needed for daily living? No 12/22/2024 Turon Depression Scale Answer Date Recorded [place] Depression Scale Total 4 12/25/2024 The thought [...] any time in the past 12 m [facility], were you homeless or living in a skilled nursing (including now)? No 12/22/2024 Personal Safety Answer [...] on file Sexual Orientation Not on file Last Filed Vital Signs Vital Sign Reading [...] 12/22/2024 8:28 PM CDT Plan of Treatment Not on file Procedures Procedure Name Priority Date/Time Associated Diagnosis Comments CBC WITHOUT DIFFERENTIAL Routine 12/24/2024 8:46 AM CDT CBC WITHOUT DIFFERENTIAL Routine 12/24/2024 7:25 AM CDT SECTION 12/23/2024 4:05 PM CDT Intolerance of Labor Failure to Progress ME AN PROCEDURE PLACEHOLDER Routine 12/23/2024 3:35 AM [...] - 9.90 K/cumm Comment:Testing performed by : [address] [address] Hgb 10.5(L) 11.9 - 15.5 g/dL ANGELA Comment:Testing performed by : [address] [address] Hct 31.3(L) 35.6 - 45.5 % ANGELA Comment:Testing performed by : [address] [address] Plt 237 150 - 400 K/cumm ANGELA Comment:Testing performed by : [address] [place]., [address] MPV 11.1 9.1 - 12.3 fL ANGELA CAMPBELL Comment:Testing performed by : [address], [address] RBC 3.48(L) 3.90 - 5.20 M/cumm ANGELA CAMPBELL Comment:Testing performed by : [address], [address] MCV 89.9 81.3 - 96.4 fL ANGELA CAMPBELL Comment:Testing performed by : [address], [address] MCH 30.2 27.1 - 33.3 pg ANGELA CAMPBELL Comment:Testing performed by : [address], [address] MCHC 33.5 32.3 - 35.7 g/dL ANGELA CAMPBELL Comment:Testing performed by : [address], [address] RDW CV 14.0 11.1 - 14.9 % ANGELA Comment:Testing performed by : [address], [address] RDW SD 45.5 35.7 - 48.1 fL ANGELA Comment:Testing performed by : [address], [address] NRBC abs 0.00 0.00 - 0.01 K/cumm ANGELA CAMPBELL Comment:Testing performed by : [address], [address] Blood 12/24/2024 8:46 AM CDT 12/24/2024 9:34 AM CDT us Nito Billings MD LAB BLOOD ORDERABLES Fin al Result ANGELA [address] [facility] Department [place] [address] * (ABNORMAL) CBC without differential (12/24/2024 7:25 AM CDT) WBC 12.71(H) 3.80 - 9.90 K/cumm Comment:Testing performed by : [address] [address] Hgb 10.1(L) 11.9 - 15.5 g/dL ANGELA Comment:Testing performed by : [address], [address] Hct 30.6(L) 35.6 - 45.5 % ANGELA Comment:Testing performed by : [address], [address] Plt 220 150 - 400 K/cumm ANGELA Comment:Testing performed by : [address], [address] MPV 11.1 9.1 - 12.3 fL ANGELA Comment:Testing performed by : [address], [address] RBC 3.39(L) 3.90 - 5.20 M/cumm ANGELA Comment:Testing performed by : [address], [address] MCV 90.3 81.3 - 96.4 fL ANGELA Comment:Testing performed by : [address], [address] MCH 29.8 27.1 - 33.3 pg ANGELA Comment:Testing performed by : [address], [address] MCHC 33.0 32.3 - 35.7 g/dL ANGELA Comment:Testing performed by : [address], [address] RDW CV 13.9 11.1 - 14.9 % ANGELA Comment:Testing performed by : [address], [address] RDW SD 46.0 35.7 - 48.1 fL ANGELA Comment:Testing performed by : [address], [address] NRBC abs 0.00 0.00 - 0.01 K/cumm ANGELA Comment:Testing performed by : [address], [address] Blood 12/24/2024 7:25 AM CDT 12/24/2024 8:43 AM CDT Nito Talley DO LAB BLOOD ORDERABLES Fi nal Result ANGELA MH [address] [facility] Department [place] [address] * ME AN PROCEDURE PLACEHOLDER (12/23/2024 3:35 AM CDT) Narrative Elizabeth Mcelroy CRNA - 12/23/2024 3:35 AM CDT Elizabeth Mcelroy CRNA 12/23/2024 3:35 AM Epidural Block Patient location: L&D Reason for block: labor analgesia Staff: Placed by: [employer]: Elizabeth Mcelroy CRNA Procedure prep: Preprocedure checklist: [...] patient tolerated procedure well with no complications Hair Singh MD ANESTHESIA ORDERABLES Final R [...] was last reviewed 2021. Testing performed by: [address] [address] Blood 12/22/2024 8:44 PM CDT 12/22/2024 8:51 PM CDT us Vita [place] MD LAB BLOOD ORDERABLES Tash li Result ANGELA [facility] Department [place] [address] * (ABNORMAL) Differential, auto (12/22/2024 8:44 PM CDT) Neutrophil abs 11.81(H) 1.50 - 6.50 K/cumm Comment:Testing performed by : [address] [address] Imm gran abs 0.09 0.00 - 0.10 K/cumm ANGELA Comment:Testing performed by : [address] [address] Lymphocyte abs 2.56 0.80 - 3.30 K/cumm ANGELA Comment:Testing performed by : [address] [address] Monocyte abs 0.80 0.20 - 0.80 K/cumm ANGELA Comment:Testing performed by : [address] [address] Eosinophil abs 0.09 0.00 - 0.50 K/cumm ANGELA Comment:Testing performed by : [address] [address] Basophil abs 0.04 0.00 - 0.10 K/cumm ANGELA Comment:Testing performed by : [address] [address] Neutrophil pct 76.7 % [facility] Comment: Interpretive Data Percent cell count reference ranges are not reported, since discordance with absolute values may lead to misinterpretation of CBC data. Current Interpretive Data was last revised on 2017. Testing performed by: [address] [address] Imm gran pct 0.6 % [facility] Comment: Interpretive Data Percent cell count reference ranges are not reported, since discordance with absolute values may lead to misinterpretation of CBC data. Current Interpretive Data was last revised on 2017. Testing performed by: [address] [address] Lymphocyte pct 16.6 % [facility] Comment: Interpretive Data Percent cell count reference ranges are not reported, since discordance with absolute values may lead to misinterpretation of CBC data. Current Interpretive Data was last revised on 2017. Testing performed by: [address] [address] Monocyte pct 5.2 % [facility] Comment: Interpretive Data Percent cell count reference ranges are not reported, since discordance with absolute values may lead to misinterpretation of CBC data. Current Interpretive Data was last revised on 2017. Testing performed by: [address] [address] Eosinophil pct 0.6 % [facility] Comment: Interpretive Data Percent cell count reference ranges are not reported, since discordance with absolute values may lead to misinterpretation of CBC data. Current Interpretive Data was last revised on 2017. Testing performed by: [address] [address] Basophil pct 0.3 % [facility] Comment: Interpretive Data Percent cell count reference ranges are not reported, since discordance with absolute values may lead to misinterpretation of CBC data. Current Interpretive Data was last revised on 2017. Testing performed by: [address] [address] Blood 12/22/2024 8:44 PM CDT 12/22/2024 8:51 PM CDT us Nito Talley DO LAB BLOOD ORDERABLES Fi nal Result [facility] [address] [facility] Department [place] [address] * (ABNORMAL) CBC with auto differential (12/22/2024 8:44 PM CDT) WBC 15.39(H) 3.80 - 9.90 K/cumm Comment:Testing performed by : [address] [address] Hgb 12.2 11.9 - 15.5 g/dL ANGELA Comment:Testing performed by : [address] [address] Hct 35.8 35.6 - 45.5 % ANGELA Comment:Testing performed by : [address] [address] Plt 293 150 - 400 K/cumm ANGELA Comment:Testing performed by : [address] [address] MPV 10.9 9.1 - 12.3 fL ANGELA Comment:Testing performed by : [address] [address] RBC 4.05 3.90 - 5.20 M/cumm ANGELA Comment:Testing performed by : [address] [address] MCV 88.4 81.3 - 96.4 fL ANGELA Comment:Testing performed by : [address] [address] MCH 30.1 27.1 - 33.3 pg ANGELA CAMPBELL Comment:Testing performed by : [address] [address] MCHC 34.1 32.3 - 35.7 g/dL ANGELA Comment:Testing performed by : [address] [address] RDW CV 13.9 11.1 - 14.9 % ANGELA CAMPBELL Comment:Testing performed by : [facility], [address] [place] [address]., [address] RDW SD 44.9 35.7 - 48.1 fL ANGELA CAMPBELL Comment:Testing performed by : [facility], [address] [place] [address]., [address] NRBC abs 0.00 0.00 - 0.01 K/cumm ANGELA Comment:Testing performed by : [facility], [address] [place] [address]., [address] Blood 12/22/2024 8:44 PM CDT 12/22/2024 8:51 PM CDT Nito Talley LAB BLOOD ORDERABLES Fi nal Result Performing Organization Address City/[facility] Co de Phone Number [address] [place] [address] * ABO/Rh (12/22/2024 8:44 PM CDT) ABO/Rh B Positive Comment:Testing performed by : [address], [address] Blood 12/22/2024 8:44 PM CDT 12/22/2024 8:51 PM CDT Narrative ANGELA - 12/22/2024 9:23 PM CDT Has the patient had Daratumumab or Isatuximab in the past 6 months?->Unknown Nito Talley DO LAB BLOOD BANK TEST ORD ERABLES Final Result [address] [place], [place] [id number] * RPR Blood (12/22/2024 8:44 PM CDT) RPR Nonreactive Nonreactive Comment:Testing performed by : [facility], 1 [facility] [place]., [address] Blood 12/22/2024 8:44 PM CDT 12/23/2024 12:52 AM CDT Nito Talley LAB MICROBIOLOGY - GENE RAL ORDERABLES Final Result [address] [place] [address] * Antibody screen (12/22/2024 8:44 PM CDT) [facility] Ish, indirect, Gel Interpretation Negative ABSC Comment:Testing performed by : [address] [address] Blood 12/22/2024 8:44 PM CDT 12/22/2024 8:51 PM CDT Narrative ANGELA - 12/22/2024 9:28 PM CDT Has the patient had Daratumumab or Isatuximab in the past 6 months?->Unknown Nito Talley DO LAB BLOOD BANK TEST ORD ERABLES Final Result Performing Organization Address [facility] Co de Phone Number [address] [place] [address] * (ABNORMAL) Comprehensive metabolic panel (12/22/2024 8:44 PM CDT) [facility] Sodium 134(L) 135 - 145 mmol/L Comment:Testing performed by : [address] [address] Potassium, pl 3.8 3.3 - 4.9 mmol/L ANGELA Comment:Testing performed by : [address] [address] Chloride 104 97 - 110 mmol/L ANGELA Comment:Testing performed by : [address] [address] CO2 19(L) 22 - 32 mmol/L ANGELA Comment:Testing performed by : [address] [address] Anion gap 11 2 - 15 mmol/L ANGELA Comment:Testing performed by : [address] [address] BUN 4(L) 6 - 25 mg/dL [facility] Comment:Testing performed by : [address] [address] Creatinine 0.67 0.60 - 1.10 mg/dL [facility] Comment:Testing performed by : [address] [address] Glucose 138 70 - 199 mg/dL [facility] Comment: Interpretive Data Fasting glucose >/= 126 [...] was last revised 2022. Testing performed by: [address] [address] Calcium 9.3 8.5 - 10.3 mg/dL [facility] Comment:Testing performed by : [address] [address] Bilirubin, total 0.2 0.1 - 1.2 mg/dL [facility] Comment:Testing performed by : [address] [address] Protein, pl 6.3(L) 6.5 - 8.5 g/dL [facility] Comment:Testing performed by : [address] [address] Albumin 3.3(L) 3.5 - 5.0 g/dL [facility] Comment:Testing performed by : [address] [address] Alk phos 223(H) 40 - 130 Units/L ANGELA Comment:Testing performed by : [address] [address] ALT 9 7 - 45 Units/L ANGELA Comment:Testing performed by : [facility], [address] [place] [address]., [address] AST 15 10 - 45 Units/L ANGELA Comment:Testing performed by : [facility], [address] [place] [address]., [address] Blood 12/22/2024 8:44 PM CDT 12/22/2024 8:51 PM CDT us Vita [place] MD LAB BLOOD ORDERABLES Tash li Result ANGELA [address] [facility] Department [place] [address] * (ABNORMAL) Urinalysis reflex to microscopic and culture Urine, clean voided (12/17/2024 1:51 PM CDT) Color, ur Yellow Yellow Clarity, ur Clear Clear [facility] (NOEL) Specific gravity, ur 1.026 1.003 - [...] tendency for uric acid stone formation. Source: [facility] [place] Current Interpretive Data was last revised on 2017 Protein, ur ql 1+(A) Negative [facility] (NOEL) Glucose, ur ql Negative Negative [facility] ([place]) Ketones, ur 1+(A) Negative CERNER A (NOEL) Bilirubin, ur Negative Negative [facility] [...] 1:57 PM CDT Cachorro Alcazar MD LAB MICROBIOLOGY - GEN ERAL ORDERABLES Final Result Performing Organization Address [facility] Co de Phone Number ANGELA GAINES (NOEL) 1 [facility] [place] [address] * (ABNORMAL) Urinalysis, microscopic only (12/17/2024 1:51 PM CDT) WBC, ur 11-20(A) 0 - 5 /HPF RBC, ur 0-2 0 - 2 /HPF ANGELA GAINES ([place]) Epithelial cells, squamous, ur 11-20(A) 0 - 5 /HPF ANGELA GAINES ([place]) Mucous, ur Present(A) CERNER Lisa ([place]) Culture Reflex Comment Reflex to urine culture will be performed. ANGELA GAINES ([place]) Urine, clean voided 12/17/2024 1:51 PM CDT 12/17/2024 1:57 PM CDT Cachorro Alcazar MD LAB URINE ORDERABLES F inal Result Performing Organization Address [facility] Co de Phone Number ANGELA GAINES ([place]) 1 [place] [address] * Urine culture Urine, clean voided (12/17/2024 1:51 PM CDT) Report Final Report: Less than 100,000 colonies/mL (clinically insignificant growth based on current clinical standards) Comment:Testing performed by : [facility], 1 [facility], [place]., [address] Organism (CLINICALLY INSIGNIFICANT GROWTH ANGELA GAINES ([place]) Urine, clean voided 12/17/2024 1:51 PM CDT 12/17/2024 4:47 PM CDT Narrative ANGELA GAINES ([place]) - 12/18/2024 5:44 PM CDT Urine culture reflexed based upon urinalysis results. Testing performed by [facility] ([phone]) us Cachorro Alcazar MD LAB MICROBIOLOGY - GEN ERAL ORDERABLES Final Result ANGELA GAINES ([place]) [address] [facility] Department [place] [address] * ROM Plus (IGFBP-1/AFP) (12/08/2024 12:10 AM CDT) IFG Binding Protein-1 / AFP Negative Swab 12/08/2024 12:1 0 AM CDT 12/08/2024 12:20 AM CDT us Lesley Hazel MD LAB BODY FLUIDS AND STOOLS ORDERABLES Final Result Performing Organization Address City/[facility]/ZIP Co de Phone Number ANGELA GAINES ([place]) 1 [facility] [place] [address] * (ABNORMAL) Urinalysis reflex to microscopic and [...] tendency for uric acid stone formation. Source: [facility] [place] Current Interpretive Data was last revised on [...] Reflex to microscopic UA will be performed. ANGELA [facility] ([place]) Urine, clean voided 12/08/2024 12:10 AM CDT 12/08/2024 12:20 AM CDT us Lesley Hazel MD LAB MICROBIOLOGY - GENERAL ORDERABLES Final Result Performing Organization Address City/[facility] Co de Phone Number ANGELA GAINES ([place]) [address] [facility] [employer] [place] [address] * (ABNORMAL) Urinalysis, microscopic only (12/08/2024 12:10 AM CDT) WBC, ur 11-20(A) 0 - 5 /HPF RBC, ur 0-2 0 - 2 /HPF [facility] ([place]) Epithelial cells, squamous, ur 1-5 0 - 5 /HPF [facility] ([place]) Bacteria, ur Trace(A) [facility] ([place]) Mucous, ur Present(A) [facility] A [facility] ([place]) Sperm, ur Present(A) [facility] ([place]) Culture Reflex Comment Reflex to urine culture will be performed. ANGELA GAINES ([place]) Urine, clean voided 12/08/2024 12:10 AM CDT 12/08/2024 12:20 AM CDT us Lesley Hazel MD LAB URINE ORDERABLE S Final Result Performing Organization Address City/[facility]/ZIP Co de Phone Number ANGELA GAINES ([place]) [address] [facility] [place] [place] [address] * Urine culture Urine, clean voided (12/08/2024 12:10 AM CDT) Report Final Report: Less than 100,000 colonies/mL (clinically insignificant growth based on current clinical standards) Comment:Testing performed by : [facility] 1 [facility], [place]., [address] Organism (CLINICALLY INSIGNIFICANT GROWTH [facility] ([place]) Urine, clean voided 12/08/2024 12:10 AM CDT 12/08/2024 2:35 AM CDT Narrative ANGELA [facility] ([place]) - 12/09/2024 7:28 AM CDT Urine culture reflexed based upon urinalysis results. Testing performed by [facility] ([phone]) us Lesley Hazel MD LAB MICROBIOLOGY - GENERAL ORDERABLES Final Result ANGELA GAINES ([place]) [address] [facility] Department [place] [address] * (ABNORMAL) Urinalysis reflex to microscopic and [...] tendency for uric acid stone formation. Source: [facility] [place] Current Interpretive Data was last revised on [...] Reflex to microscopic UA will be performed. ANGELA GAINES ([place]) Urine, clean voided 12/04/2024 7:19 PM CDT 12/04/2024 7:38 PM CDT us Lesley Hazel MD LAB MICROBIOLOGY - GENERAL ORDERABLES Final Result Performing Organization Address City/[facility]/ZIP Co de Phone Number ANGELA [facility] ([place]) 1 [facility] [place] [address] * (ABNORMAL) Urinalysis, microscopic only (12/04/2024 7:19 PM CDT) WBC, ur >50(A) 0 - 5 /HPF RBC, ur 0-2 0 - 2 /HPF ANGELA [facility] ([place]) Epithelial cells, squamous, ur 11-20(A) 0 - 5 /HPF ANGELA [facility] ([place]) Bacteria, ur 1+(A) ANGELA [facility] ([place]) Mucous, ur Present(A) CERNER A ([place]) Culture Reflex Comment Reflex to urine culture will be performed. ANGELA GAINES ([place]) Urine, clean voided 12/04/2024 7:19 PM CDT 12/04/2024 7:38 PM CDT us Lesley Hazel MD LAB URINE ORDERABLE S Final Result Performing Organization Address City/[facility]/ZIP Co de Phone Number ANGELA GAINES ([place]) 1 [facility] [employer] [place] [address] * Urine culture Urine, clean voided (12/04/2024 7:19 PM CDT) Report Final Report: Less than 100,000 colonies/mL (clinically insignificant growth based on current clinical standards) Comment:Testing performed by : [facility], 1 [facility], [place]., [address] Organism (CLINICALLY INSIGNIFICANT GROWTH ANGELA [facility] ([place]) Urine, clean voided 12/04/2024 7:19 PM CDT 12/04/2024 10:05 PM CDT Narrative ANGELA GAINES ([place]) - 12/06/2024 10:33 AM CDT Urine culture reflexed based upon urinalysis results. Testing performed by [facility] ([phone]) Lesley Hazel MD LAB MICROBIOLOGY - GENERAL ORDERABLES Final Result ANGELA GAINES ([place]) [address] [facility] Department [place] [address] * Group B streptococcal culture (11/22/2024) SCRIBED Group B Strep Negative Negative Kiersten Owen NP LAB MICROBIOLOGY - GENERAL OR DERABLES Final Result * HIV 1/2 Antibody plus p24 Antigen Blood (10/15/2024) SCRIBED HIV P24 Nonreactive Nonreactive , Invalid Blood Kiersten Owen NP LAB MICROBIOLOGY - GENERAL OR DERABLES Final Result * RPR Blood (10/15/2024) SCRIBED RPR Non-Reacti ve Non-Reacti ve Blood Kiersten Owen NP LAB MICROBIOLOGY - GENERAL OR DERABLES Final Result * Hepatitis B Surface Antigen Blood (10/15/2024) SCRIBED HBsAg Nonreactive Nonreactive , Invalid Blood Kiersten Owen NP LAB MICROBIOLOGY - GENERAL OR DERABLES Final Result * Hepatitis C antibody Blood (07/15/2024) SCRIBED HCV ab neg Blood Kiersten Owen NP LAB MICROBIOLOGY - GENERAL OR DERABLES Final Result from Last 3 Months or Most Recently Relevant to Health Maintenance Insurance [facility]PA [facility] Advance Directives For more information, please contact: [phone] * Full Code (Latest Code Status on File) Date Activated Date Inactivated Comments 12/23/2024 5:21 PM 12/25/2024 5:35 PM * Full Code Date Activated Date Inactivated Comments 12/22/2024 8:14 PM 12/23/2024 5:21 PM Full CPR in case of cardiopulmonary arrest Care Teams Route Sales Specialist Relationship Specialty Start Date End Date Unknown, Notinfile PCP - General 03/28/21
--- OUTSIDE RECORDS SUMMARY | 2025-01-04 13:38 | XMS_ITS | Data Portability ---
Author Organization [employer] , [facility] Address [address] [place] [address] Assessment No assessment recorded. Plan of Treatment Reminders Order Date Submit Date Provider Last Modified By Organization Details Last Modified Time Details Appointments None recorded. Lab streptococc us group B, culture, unspecified specimen 2024 025 MIKI [employer] [facility], [address] [place], [address], 5 08:09:37 Referral None recorded. Procedures None recorded. Surgeries None recorded. Imaging US, obstetric, biophysical profile [email or web address], [facility] [place], [address], 5 00:15:06 non-stress test 2024 025 MIKI Not available 5 04:04:50 US, obstetric, follow-up 2024 025 [email or web address] 1 Not available 5 14:53:28 non-stress test 2024 025 [email or web address] 1 Not available 5 14:53:29 US, obstetric, follow-up 2024 025 [email or web address] Not available 5 10:33:09 Medication Orders Carafate 1 gram tablet 2024 025 MIKI [facility], [address] [address], [place], [address], 11:56:25 Pepcid 40 mg tablet 2024 025 [facility], [address], [address], 11:56:23 metoclopram pedro 10 mg tablet 2024 025 [facility], [address] [address], [place], [address], 12:14:26 Patient TargetsNo targets recorded. Patient InstructionsNo instructions recorded. Reason for Referral None Reported. Results Created Date Observation Date Name Description Value Unit Range Abnormal Flag Note LastModifiedBy Organization Detail LastModifiedTime 10/15/1910/16/2024 CBC (INCL UDES DIFF/ PLT) WBC 16.3 thous and/u L 4.0 - 9.8 high Not Available [place], [address], 10/16/2024 11:01:57 10/15/19 25 10/16/2024 CBC (INCL UDES DIFF/ PLT) RBC 4.1 kwame on/uL 3.9 - 4.9 normal Not Available [place], [address], 10/16/2024 11:01:57 10/15/19 25 10/16/2024 CBC (INCL UDES DIFF/ PLT) hemoglobin 12.4 g/dL 11.8 - 14.8 normal Not Available [place], [address], 10/16/2024 11:01:57 10/15/19 25 10/16/2024 CBC (INCL UDES DIFF/ PLT) hematocrit 38.6 % 35.5 - 44.0 normal Not Available [place], [address], 10/16/2024 11:01:57 10/15/19 10/16/2024 CBC (INCL UDES DIFF/ PLT) MCV 94.6 fL 82.0 - 99.0 normal Not Available [address], [address], 10/16/2024 11:01:57 10/15/19 25 10/16/2024 CBC (INCL UDES DIFF/ PLT) MCH 30.4 pg 27.2 - 32.6 normal Not Available [address], [address], 10/16/2024 11:01:57 10/15/19 25 10/16/2024 CBC (INCL UDES DIFF/ PLT) MCHC 32.1 g/dL 31.5 - 35.5 normal Not Available [address], [address], 10/16/2024 11:01:57 10/15/19 25 10/16/2024 CBC (INCL UDES DIFF/ PLT) RDW-CV 12.8 % 11.5 - 14.5 normal Not Available [address], [address], 10/16/2024 11:01:57 10/15/19 25 10/16/2024 CBC (INCL UDES DIFF/ PLT) platelet 342 thous and/u L 140 - 350 normal Not Available [address], [address], 10/16/2024 11:01:57 10/15/19 25 10/16/2024 CBC (INCL UDES DIFF/ PLT) MPV 11.0 fL 9.3 - 12.4 normal Not Available [address], [address], 10/16/2024 11:01:57 10/15/19 25 10/16/2024 CBC (INCL UDES DIFF/ PLT) absolute neutrophil 13.40 thous and/u L 1.90 - 7.00 high Not Available [address], [address], 10/16/2024 11:01:57 10/15/19 25 10/16/2024 CBC (INCL UDES DIFF/ PLT) absolute lymphocyte 2.17 thous and/u L 0.70 - 4.50 normal Not Available [address], [address], 10/16/2024 11:01:57 10/15/19 25 10/16/2024 CBC (INCL UDES DIFF/ PLT) absolute monocyte 0.55 thous and/u L 0.10 - 1.30 normal Not Available [address], [address], 10/16/2024 11:01:57 10/15/19 25 10/16/2024 CBC (INCL UDES DIFF/ PLT) absolute eosinophil 0.06 thous and/u L <0.70 normal Not Available [address], [address], 10/16/2024 11:01:57 10/15/19 25 10/16/2024 CBC (INCL UDES DIFF/ PLT) absolute basophil 0.04 thous and/u L <0.20 normal Not Available [address], [address], 10/16/2024 11:01:57 10/15/19 25 10/16/2024 CBC (INCL UDES DIFF/ PLT) absolute immature granulocyte 0.12 thous and/u L <0.03 high Not Available [address], [address], 10/16/2024 11:01:57 10/15/19 25 10/16/2024 (50G) 1HR - GLUCO SE SURI ANCE TEST, RANIA JAN IRELAND N glucose (50g) 1 hour 129 mg/dL <135 normal Not Available [address], [address], 10/16/2024 11:23:05 10/15/19 25 10/16/2024 OB 28W (SYPH HIV 1/2 Ag/Ab Non-Re active non-re active normal Not Available [address] [place], [address], 10/16/2024 11:54:34 10/15/19 25 10/16/2024 OB 28W (SYPH syphilis Ab Non-Re active non-re active normal Not Available [address] [place], [address], 10/16/2024 11:54:34 11/23/19 25 11/25/2024 STREP TOCOC CUS, GROUP B CULTU RE streptococcu s, group B culture SEE NOTE STREP TOCOC CUS, GROUP B CULTU RE Micro Numbe r: [id number] Test Statu s: Final Speci men Sourc e: Not given Speci men Quali ty: Adequ ate Resul t: No group B Strep tococ cus isola danielle Note per CDC guide lines optim al recov gutierrez is achie mnapreet by swabb ing both the lower vagin a and rectu m (thro ugh the anal sphin cter) . Not Available [address] [address] [place], [address], 11/25/2024 08:09:37 11/20/19 25 11/19/2024 US, obste tric, follo w-up No observ ation record ed. [email or web address] [address], [facility], [place], [address], 11/19/2024 11:29:30 12/16/19 US, obste tric, bioph ysica l profi le No observ ation record ed. [email or web address] [facility] [address] [place], [address], 12/15/2024 17:38:18 12/19/19 25 12/15/2024 US, obste tric, bioph ysica l profi le No observ ation record ed. [email or web address] [address], [place], [address], 12/18/2024 12:32:53 Result Notes None recorded. Problems Name Problem SNOMED Code Status Onset Date Resolution Date Notes Provider Name and Address Organization Details Recorded Time 88871566 Active 2023 PRATIBHA DIAZ [address] [place], [address] , [facility] 4 10:17:38 Body mass index 40+ - severely obese 068640092 Active Sending to [facility] for Anatomy growth by [facility] 3-14 efw was 67% and AC 50% Nito Billings MD [address] [place] [address], [address] , [facility] 5 11:51:08 Body mass index 40+ - severely obese 345374358 Active Sending to [facility] for Anatomy growth by [facility] 3-14 efw was 67% and AC 50% Nito Billings MD [facility] [place], [address] , [facility] 5 11:51:07 Gallstone 005397964 Active Pt reports she found out during . Reports they will not remove gallbladde r until after . Bobbi Cortez null, [facility] 5 09:13:07 Low lying placenta 024636612 Active 2023 Resolved TYSON GREGORY [address] [place], [address] , [facility] 5 10:29:08 Gallstone 822597698 Active Pt reports she found out during . Reports they will not remove gallbladde r until after . Bobbi Cortez neel, [email or web address] 5 09:13:07 Problem Notes None recorded. Procedures Surgical History Date Name Laterality Status Provider Name and Address Organization Details Recorded Time 12/08/2024 NST cancelled Jenni Hammer [facility] 12/03/2024 14:11:32 12/02/2024 NST completed CAMDEN DEVINE NP [facility] [place], [address], [facility] [employer] [facility] 12/13/2024 18:03:20 11/22/2024 NST completed Nito Billings MD [address] [place], [address], [email or web address] 11/22/2024 11:48:06 11/19/2024 NST completed TYSON GREGORY [address] [place], [address], [facility] [employer] [facility] 11/19/2024 09:41:26 Imaging Results Imaging Date Name Status LastModified by Organiz ation Details LastModified Time 11/19/2024 US, obstetric, follow-up completed [email or web address] [address], [place], [address], 11/19/2024 11:29:30 12/15/2024 US, obstetric, biophysical profile completed [email or web address] [facility] [address] [place], [address], 12/15/2024 17:38:18 12/15/2024 US, obstetric, biophysical profile completed [email or web address] [address], [place], [address], 12/18/2024 12:32:53 Procedure Notes None recorded. Medical Equipment None Reported. Allergies Allergen ID Allergen Name Allergen Category Reaction Reaction Severity Criticality Documentation Date Start Date Code Code System Note Provider Name and Address Organization Details Recorded Time 849054 No known allergy (situatio n) Not available Not available Not available Not available 07/15/2024 95144 6003 SNOMED Not Available Not Available Not Available No known drug allergies Medications Name Sig Start Date Stop Date Status Note LastModified by Organization Details LastModified Time hydrocodone 5 mg-acetaminoph en 325 mg tablet TAKE 1 TABLET BY MOUTH EVERY 4 HOURS NEEDED FOR PAIN. active Not Available Not Available No t Available sucralfate 1 gram tablet TAKE 1 TABLET BY MOUTH 4 TIMES DAILY DIRECTED active Not Available Not Available No t Available aspirin 81 mg tablet,delayed release TAKE 1 TABLET BY MOUTH ONCE DAILY active Not Available Not Available No t Available docusate sodium 100 mg capsule TAKE ONE CAPSULE BY MOUTH TWICE DAILY active Not Available Not Available No t Available Pepcid 40 mg tablet Take 1 tablet every day by oral route. 2024 active Not Available Not Available Not Avai lable ibuprofen 600 mg tablet TAKE 1 TABLET BY MOUTH EVERY 6 HOURS NEEDED FOR PAIN active Not Available Not Available No t Available metoclopramide 10 mg tablet Take 1 tablet 4 times a day by oral route as needed. 2024 active Not Available Not Available Not Avai lable nitrofurantoin monohydrate/ma crocrystals 100 mg capsule TAKE 1 CAPSULE BY MOUTH TWICE DAILY active Not Available Not Available No t Available active Not Available Not Avai lable Not Available Vitals Date Recorded Body height Body mass index (BMI) Body weight Systolic blood pressure Diastolic blood pressure Provider Name and Address Organization Details Last Updated DateTime 11/02/2024 162.56 cm 44.1 kg/m2 391616.9 47426 g 114 mm[Hg] 70 mm[Hg] Radha Dill [facility] [employer] [facility] 5 15:47:17 Date Recorded Body weight Body mass index (BMI) Body height Systolic blood pressure Diastolic blood pressure Provider Name and Address Organization Details Last Updated DateTime 11/19/2024 668166.7 9331 g 45.1 kg/m2 162.56 cm 122 mm[Hg] 76 mm[Hg] Bobbi Cortez [facility] [employer] [facility] 5 09:12:54 Date Recorded Body height Oxygen saturation Oxygen saturation in Arterial blood by Pulse oximetry Body mass index (BMI) Body weight Systolic blood pressure Diastolic blood pressure Provider Name and Address Organization Details Last Updated DateTime 5 162.56 cm 0.01 % 0.01 % 44.4 kg/m2 592314. 27 g 120 mm[Hg] 78 mm[Hg] Michela Gonzales [facility] [employer] [facility] 5 10:24:08 Date Recorded Body weight Body mass index (BMI) Body height Systolic blood pressure Diastolic blood pressure Provider Name and Address Organization Details Last Updated DateTime 12/02/2024 501021.0 65379 g 44.9 kg/m2 162.56 cm 118 mm[Hg] 74 mm[Hg] Katharina Dotson [employer] [facility] 5 15:47:28 Date Recorded Body height Body mass index (BMI) Body weight Systolic blood pressure Diastolic blood pressure Provider Name and Address Organization Details Last Updated DateTime 12/15/2024 162.56 cm 45.5 kg/m2 883556.7 g 120 mm[Hg] 70 mm[Hg] Michela Gonzales [employer] [facility] 5 16:47:16 Social History Question Answer Notes LastModified by [employer] Details LastModified Time If You Are , What Was Your Level Of Alcohol Consumption Prior To ? Moderate [email or web address] Information not available 07/15/2024 Are You Blind Or Do You Have Difficulty Seeing? No [email or web address] Information not available 07/15/2024 Are You Currently Employed? No [email or web address] Information not available 07/15/2024 Are You Deaf Or Do You Have Serious Difficulty Hearing? No Information not available 07/15/2024 What Type Of Diet Are You Following? REGULAR [email or web address] Information not available 07/15/2024 Which Illicit Or Recreational Drugs Have You Used? [place] [email or web address] Information not available 07/15/2024 How Many Children Do You Have? 0 [email or web address] Information not available 07/15/2024 What Is Your Relationship Status? Domestic Partner [email or web address] Information not available 07/15/2024 Are You Sexually Active? Yes [email or web address] Information not available 07/15/2024 Do You Use Any Illicit Or Recreational Drugs? Yes [email or web address] Information not available 07/15/2024 Have You Used IV Drugs? No [email or web address] Information not available 09/06/2024 Sex: Unknown Functional Status Question Answer Note LastModified by [employer] Details LastModified Time What is your exercise level? Occasional [email or web address] Information not available 07/15/2024 Mental Status None recorded. Family History Relationship Description Onset Age of this Age Resolved Age Notes LastModified by Organization Details LastModified Time Father No current problems or disability [email or web address] Not available 07/15 09:46:06 Mother No current problems or disability [email or web address] Not available 07/15 09:46:06 Medical History Condition Response Kidney Infection Y Gynecological History Statement/Question Response Date of Last Colonoscopy Flow Moderate Date of last HPV Date of LMP Most Recent Bone Density Date of Last Pap Smear Duration of Flow (days) 5 Most Recent Mammogram Current Control Method Age at Menarche 13 Obstetrics History GPAL:G 1 P 0 0 0 0 Type Value Multiple Births 0 Full Term 0 Induced 0 Spontaneous 0 Premature 0 Living 0 Ectopics 0 Total 1 Past Encounters Encounter ID Performer Location Encounter Start Date Encounter Closed Date Diagnosis/Indication Diagnosis SNOMED-CT Code Diagnosis ICD10 Code Diagnosis [id number] [facility] [address] [place] [address] 07/15/2024 09:28:10 07/15/2024 11:25:11 screening 605246683 Z36.89 Just finished abx for UTI test positive 745090884 Z32.01 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 Toxoplasmo sis precaution s reviewed. Reviewed office visit schedule during . Reviewed Quickening and normal FHTs. Body mass index 40+ - severely obese 318224573 Z68.41 -- Pre-Pregna ncy BMI >40Serial Growths at 28w, 32w, 36wWeekly NST/DIANE starting at 34w -- Low dose Aspirin : 81 mg/day prophylaxi s is recommende d in women at high risk of preeclamps ia. Recommende d to be initiated at 12 weeks gestation. Risk Factors:(t wo present) Primiparit y (or interval of >10 years between pregnancie s), Obesity (BMI >30) care status 24 2607119 Z34.92 [id number] [facility] [address] [place] [address] 08/12/2024 09:36:31 08/12/2024 11:11:53 Gestation period, 21 weeks 00861662 Z3A.21 Low lying placenta 01715 2006 O44.40 Dysuria 43331798 R30.0 care status 24 8216797 Z34.92 Pt is here for a OSIEL appointmen t. She is taking vitamins. She has no complaints or questions. Denies vaginal bleeding, abdominal cramps, N/V, contractio ns, or LOF. Denies headache, vision changes, swelling of hands or face, and epigastric pain. Discussed PTL and precaution s given. There are no identifiab le risk factors for pre-term labor. Reminded pt that I do not delivery babies. Will plan for pt to start meeting delivery providers after 28 week visit. [id number] [facility] [address] [place] [address] 09/06/2024 10:03:47 09/06/2024 10:39:20 Gestation period, 24 weeks 554577200 Z3A.24 care status 24 5406006 Z34.92 Pt is here for a OSIEL appointrebecca whitmore. She is taking vitamins. She has no complaints or questions. Denies vaginal bleeding, abdominal cramps, N/V, contractio ns, or LOF. Denies headache, vision changes, swelling of hands or face, and epigastric pain. Discussed PTL and precaution s given. There are no identifiab le risk factors for pre-term labor. Reminded pt that I do not delivery babies. Will plan for pt to start meeting delivery providers after 28 week visit. Body mass index 40+ - severely obese 245434047 Z68.41 -- Pre-Pregna ncy BMI >40Serial Growths at 28w, 32w, 36w. Done with MFM. -- Low dose Aspirin : 81 mg/day prophylaxi s is recommende d in women at high risk of preeclamps ia. Recommende d to be initiated at 12 weeks gestation. Risk Factors:(t wo present) Primiparit y (or interval of >10 years between pregnancie s), Obesity (BMI >30) Gallstone 226350769 K80. 20 [id number] ORESTES DEJESUS [facility] [address] [place] [address] 10/15/2024 09:57:24 10/15/2024 12:38:27 Depression screening 252471454 Z13.31 See Screening Section for EPDS Questionna kenna ResultPhq 9 Score 7-Watchful waiting; repeat PHQ-9 at follow-upP t educated on abnormal scoring, and discussed interventi ons of exercise, referral to psych/coun seling services, or medication tx options. Pt declines interventi on at this time. Pt to notify HCP if sx persistent or worsening. Pt states understand ing of POC. Gestation period, 30 weeks 09844352 Z3A.30 screening 2437 73961 Z36.9 Severe obesity 886722673 1 9104 E66.813 E66.01 Z68.41 EFW 31% at [facility] on 10/08, repeat in 4 weeks at [facility] care status 24 7412874 Z34.93 Pt is here for a OSIEL gustavomen t. She is taking vitamins. She has no complaints or questions. Denies vaginal bleeding, abdominal cramps, N/V, contractio ns, and LOF. Denies headache, vision changes, swelling of hands or face, and epigastric pain. Reports feeling movement. Discussed Movement Counts. TDAP and Flu Education and Order given.RhoG am: Not neededDisc ussed pediatrici an selection and pre registerin g with hospital.D iscussed contracept ion options. Discussed Progestero ne only contracept daniel methods if patient desires to breastfeed .Patient undecided on contracept ion. GBS: @36 weeks36 week HSV suppressio n: Discussed PTL and precaution s given. There are no identifiab le risk factors for pre-term labor. Follow up in L&D if experienci ng decreased movement, leaking fluid, or regular uterine contractio ns increasing in frequency and/or intensity. [id number] CAMDEN DEVINE NP [facility] [address] [place] [address] 11/02/2024 15:36:31 11/02/2024 16:16:36 Body mass index 40+ - severely obese 250394724 Z68.41 -- Pre-Pregna ncy BMI >40Serial Growths at 28w, 32w, 36w. Done with [facility]. -- Low dose Aspirin : 81 mg/day prophylaxi s is recommende d in women at high risk of preeclamps ia. Recommende d to be initiated at 12 weeks gestation. Risk Factors:(t wo present) Primiparit y (or interval of >10 years between pregnancie s), Obesity (BMI >30) Gallstone 908000032 K80. 20 Gestation period, 32 weeks 7906347 Z3A.32 Normal 0832049 2 Z34.83 Pt is here for a OSIEL appointmen t. She is taking vitamins. She has no complaints or questions. Reports feeling movement. Denies vaginal bleeding, abdominal cramps, N/V, contractio ns, or LOF. Denies headache, vision changes, swelling of hands or face, and epigastric pain. Discussed PTL and precaution s given. There are no identifiab le risk factors for pre-term labor. [id number] Ines Stuart MD [address] [address] 11/19/2024 08:54:45 11/19/2024 10:29:34 Gestation period, 35 weeks 58374805 Z3A.35 Primigravida 110992917 Z 34.03 The patient was initially evaluated by TYSON Gregory, who completed the history examinatio n, and preliminar y assessment . Ines South MD, entered the room to review and discuss the care plan with the patient. After reviewing the specific findings and documentat ion provided by Jennifer, I confirmed the diagnosis and care plan, addressing any additional concerns or questions raised by the patient. The final plan of care was developed francine asher and has been documented accordingl y. Maternal o besity complicating , childbirth and the puerperium, antepartum 8025289189 07 O99.213 E66.89 Nausea and vomiting in 1251989545 O21.9 [id number] Nito Billings MD [address] [address] 11/22/2024 10:11:44 11/29/2024 13:04:57 Primigravida 030834649 Z34.03 The patient was initially evaluated by TYSON Gregory, who completed the history examinatio n, and preliminar y assessment . Ines South MD, entered the room to review and discuss the care plan with the patient. After reviewing the specific findings and documentat ion provided by Jennifer, I confirmed the diagnosis and care plan, addressing any additional concerns or questions raised by the patient. The final plan of care was developed francine asher and has been documented accordingl robert. Gestation period, 35 weeks 83278331 Z3A.35 Maternal o besity complicating , childbirth and the puerperium, antepartum 0299095136 07 O99.213 E66.89 Nausea and vomiting in 6487662512 O21.9 screening 2437 51187 Z36.9 Gastroesop hageal reflux disease without esophagitis 245951199 K21.9 With hematemesi s. [id number] CAMDEN DEVINE NP [facility] [address] [place] [address] 12/02/2024 15:14:50 12/14/2024 14:44:10 Gestation period, 37 weeks 56159139 Z3A.37 Maternal o besity complicating , childbirth and the puerperium, antepartum 7267518706 07 O99.213 Normal 9674795 2 Z34.93 Pt is here for a OSIEL appointmen t. She is taking vitamins. She has no complaints or questions. Reports feeling movement. Denies vaginal bleeding, abdominal cramps, N/V, contractio ns, or LOF. Denies headache, vision changes, swelling of hands or face, and epigastric pain. Discussed PTL and precaution s given. There are no identifiab le risk factors for pre-term labor. [id number] ORESTES DEJESUS [facility] [address] [place] [address] 12/15/2024 16:08:51 12/20/2024 14:36:24 Body mass index 40+ - severely obese 098703609 E66.01 Gestation period, 38 weeks 24888345 Z3A.38 Third trim loli 55701901 Z34.03 Call our office or go to labor and delivery for the following: If you are greater than 37 weeks and contractio ns every 5 minsBlurri ng of vision or spots before your eyes and/or HARuptured membranes or leakage of vaginal fluid -may be a steady trickle or large gush - may be clear, yellow, pink or green Decreased movement-- if your baby has stopped moving or is moving less than it normally does. Do Kick Counts as instructed .Vaginal bleeding-- bright red bleeding and/or clots needs medical care immediatel y.Any temperatur e above 100 degrees.An y burning or painful urination. Increased swelling in your face, hands, or feet.Stoma ch pains, cramps, nausea,or diarrhea. Health Concerns Section Related Observation LastModified by Organization Detai ls LastModified Time None Recorded Concern Status LastModified by Organization Details LastModified Time None Recorded Advance Directives Directive None Recorded Payers Encounter Date Sequence Insurance Name Policy Number Policy Arana Covered Member ID Arana Member ID Guarantor Name 11/02/2024 1 [facility] ON OR AFTER 03/08/21 (MEDICAID REPLACEMENT - HMO) [facility] [id number] [facility] 11/19/2024 1 [facility] ON OR AFTER 03/08/21 (MEDICAID REPLACEMENT - HMO) [facility] [id number] [facility] 11/22/2024 1 [facility] ON OR AFTER 03/08/21 (MEDICAID REPLACEMENT - HMO) [facility] [id number] [facility] 12/02/2024 1 [facility] ON OR AFTER 03/08/21 (MEDICAID REPLACEMENT - HMO) [facility] [id number] [facility] 12/15/2024 1 [facility] ON OR AFTER 03/08/21 (MEDICAID REPLACEMENT - HMO) [facility] [id number] [facility] Notes Date Note Type Note Provider Name and Address Organization Details Recorded Time 11/02/2024 text/html Patient is here today for a routine OB visit. She is currently at {{6 7 8 9 10 11 12 13 14 15 16 17 18 1 9 20 21 22 23 24 25 26 27 28 29 30 31 32 33 34 35 36 37 3 8 39 40 41 32.5#}} weeks gestation. vitamins: {{yes* no}} She {{has* has not}} felt movement.She states she is always nauseous, but denies any complaints of the presence of vaginal bleed, leaking fluid, abdominal cramps, vomiting, headache or visual disturbances. CAMDEN DEVINE, INOCENCIO [address] [place], [address], [facility] [employer] IV 11/02/2024 16:03:39 11/19/2024 text/html Jennifer 24 y/o her e for routine OB visit, she is HR for obesity, she is 35/1 week, denies any vaginal spotting, bleeding, fluid leakage or cramping, movement noted, taking vitamins, getting NST and U/S today Ines Stuart MD [facility] [place], [address], [facility] [employer] [facility] 11/19/2024 10:36:24 11/22/2024 text/html The patient verbally consented to documentation via virtual scribe for this encounter. Patient is here today for a routine OB visit. She is currently at {{6 7 8 9 10 11 12 13 14 15 16 17 18 1 9 20 21 22 23 24 25 26 27 28 29 30 31 32 33 34 35 36 37 3 8 39 40 41 35.4#}} weeks gestation. vitamins: {{yes* no}} She {{has* has not}} felt movement.She denies any complaints of the presence of vaginal bleed, leaking fluid, abdominal cramps, nausea, vomiting, headache or visual disturbances. She reports being nauseous. Nito Billings MD [facility] [place], [address], [facility] [employer] IV 12/10/2024 13:01:36 12/02/2024 text/html Jennifer is here to day for a routine OB visit. She is currently at {{6 7 8 9 10 11 12 13 14 15 16 17 18 1 9 20 21 22 23 24 25 26 27 28 29 30 31 32 33 34 35 36 37* 38 39 40 41}} weeks gestation. vitamins: {{yes* no}} She {{has* has not}} felt movement. She denies any complaints of the presence of vaginal bleed, leaking fluid, abdominal cramps, nausea, vomiting, headache or visual disturbances. CAMDEN DEVINE NP [address] [place], [address], [facility] [employer] IV 12/13/2024 18:06:18 12/15/2024 text/html Patient is here today for a routine OB visit. She is currently at {{6 7 8 9 10 11 12 13 14 15 16 17 18 1 9 20 21 22 23 24 25 26 27 28 29 30 31 32 33 34 35 36 37 3 8 39 40 41 38.6#}} weeks gestation. vitamins: {{yes* no}} She {{has* has not}} felt movement.She denies any complaints of the presence of vaginal bleed, leaking fluid, abdominal cramps, nausea, vomiting, headache or visual disturbances. NO concerns ORESTES DEJESUS [address] [facility], [place], [address], [facility] 12/19/2024 00:15:57 OBGyn Episode Ob Episode Information Episode Created Date Number of Fetuses Patient Bloodtype Patient rh Status Prepregnancy Weight lbs Domestic Partner Domestic Partner Phone Father Name Horse Shoer Status 07/15/20 24 1 B Positive OPEN Fetus Data First Name Last Name Admitted to NICU Weight (g) Sex Living Outcome Pediatric Complications Fetus ID Race Codes Race Delivery Type [id number] Problems Problem Notes Problem Name Start Date End Date Resolution Snomed Code Not e Low lying placenta 08/12/2024 [id number] Resolved Gallstone [id number] Pt reports she found out during . Reports they will not remove gallbladder until after . Body mass index 40+ - severely obese [id number] Sending to [facility] for Anatomy growth by [facility] 3-14 efw was 67% and AC 50% Kem Calculation Initial Kem Date Initial Exam Date Initial Exam Provider Initial Ultrasound Date Last Menstrual Period Date Ultra Sound Weeks Gestation 07/15/2024 0 Eighteen To Twenty Week Kem Update Ultra Sound Date Fundal Height At Umbil Quickening Date Ultra Sound Latest Weeks Gestation Final Kem Confirmed By Final Kem Confirmed Date Final Kem Date Ultra Sound Latest Days Gestation 0 [email or web address] 07/15/2024 12/24/19 25 0 Pre-enrique Flowsheet Flowsheet Date 07/15/2024 Rivers Score Blood Edema Fundus Height Fundus Units Glucose Ketones Leukocytes Nitrite Labor Signs Protein Cervic Dilation Cervic Effacement Cervic Station none Type Weight in lbs Pre/Post Dialysis Refused With clothes 249.189372950274 BP Diastolic BP Location Tested BP Systolic BP Type 70 116 sitting Fetus Heart Rate Present A 152 Present Fetus Movement Comments NOB labs, UNITY, and AFP don e today. Low dose aspirin recommended. Pre- BMI: 42; US requested MFM for Anatomy due to BMI. Flowsheet Date 08/12/2024 Rivers Score Blood Edema Fundus Height Fundus Units Glucose Ketones Leukocytes Nitrite Labor Signs Protein Cervic Dilation Cervic Effacement Cervic Station none none neg Type Weight in lbs Pre/Post Dialysis Refused With clothes 250.721665570841 BP Diastolic BP Location Tested BP Systolic BP Type 72 110 sitting Fetus Heart Rate Present A 132 Present Fetus Movement Comments Anatomy with MFM on 08/10 inc omplete. Low lying placenta. AFV WNL. Reassuring cervical length. Repeat us in 4 weeks. Pt reports waking up with heartburn, N/V. Discussed diet and recommended pepcid ac with PRN medication. Flowsheet Date 09/06/2024 Rivers Score Blood Edema Fundus Height Fundus Units Glucose Ketones Leukocytes Nitrite Labor Signs Protein Cervic Dilation Cervic Effacement Cervic Station none none neg Type Weight in lbs Pre/Post Dialysis Refused With clothes 250.334142549125 BP Diastolic BP Location Tested BP Systolic BP Type 78 122 sitting Fetus Heart Rate Present A 148 Present Fetus Movement A Yes Comments MFM apt today. No OB complai nts. Discussed 1hour gct and 3rd Trimester labs next visit. Flowsheet Date 10/15/2024 Rivers Score Blood Edema Fundus Height Fundus Units Glucose Ketones Leukocytes Nitrite Labor Signs Protein Cervic Dilation Cervic Effacement Cervic Station none none none neg Type Weight in lbs Pre/Post Dialysis Refused With clothes 253.622594250289 BP Diastolic BP Location Tested BP Systolic BP Type 74 118 sitting Fetus Heart Rate Present A 155 Fetus Movement A Yes Comments MFM last on 10/08, EFW 31%- h as echo appt on 10/18. Repeat growth at [facility] scheduled.No OB concerns. GTT and 3T labs today.Undecided on delivery location information on hospitals givenPlans to formula feedPed List givenDiscussed Contraception, undecided at this time.TDAP and Flu education givenDepression screening score 7- history of depression, will monitor symptoms-declines tx at this timeRTC in 2 weeks Flowsheet Date 11/02/2024 Rivers Score Blood Edema Fundus Height Fundus Units Glucose Ketones Leukocytes Nitrite Labor Signs Protein Cervic Dilation Cervic Effacement Cervic Station 35 cm none neg Type Weight in lbs Pre/Post Dialysis Refused With clothes 257.479932526396 BP Diastolic BP Location Tested BP Systolic BP Type 70 114 sitting Fetus Heart Rate Present A 147 Present Fetus Movement A Yes Comments Growth with MFM Pt missed ap pt today. patient having difficulty with GI affects of gallstones. RTC in 2 wks for NST Flowsheet Date 11/19/2024 Rivers Score Blood Edema Fundus Height Fundus Units Glucose Ketones Leukocytes Nitrite Labor Signs Protein Cervic Dilation Cervic Effacement Cervic Station none none none neg Type Weight in lbs Pre/Post Dialysis Refused With clothes 263.533516228146 BP Diastolic BP Location Tested BP Systolic BP Type 76 R arm 122 sitting Fetus Heart Rate Present A 146 Present Fetus Movement A Yes Comments No longer seeing MFM, missed appointment and states they were rude to her. EFW 2783g 67.4% today. C/O nausea, Rx sent. RTC in 1 week for NST and GBS. Flowsheet Date 11/22/2024 Rivers Score Blood Edema Fundus Height Fundus Units Glucose Ketones Leukocytes Nitrite Labor Signs Protein Cervic Dilation Cervic Effacement Cervic Station none none trace Type Weight in lbs Pre/Post Dialysis Refused With clothes 258.129058469792 BP Diastolic BP Location Tested BP Systolic BP Type 78 120 sitting Fetus Heart Rate Present A 140 Present Fetus Movement A Yes Comments GERD with some hematemesis, prescribed Carafate and Pepcid to be taken as directed. Follow-up next week for US, sooner if needed. Flowsheet Date 12/02/2024 Rivers Score Blood Edema Fundus Height Fundus Units Glucose Ketones Leukocytes Nitrite Labor Signs Protein Cervic Dilation Cervic Effacement Cervic Station none neg Type Weight in lbs Pre/Post Dialysis Refused With clothes 261.104634349394 BP Diastolic BP Location Tested BP Systolic BP Type 74 118 sitting Fetus Heart Rate Present A 137 Present Fetus Movement A Yes Comments NST reactive. No OB complain ts. GBS Neg RTC in 1 wk Flowsheet Date 12/15/2024 Rivers Score Blood Edema Fundus Height Fundus Units Glucose Ketones Leukocytes Nitrite Labor Signs Protein Cervic Dilation Cervic Effacement Cervic Station none trace Type Weight in lbs Pre/Post Dialysis Refused With clothes 265.024651743493 BP Diastolic BP Location Tested BP Systolic BP Type 70 120 sitting Fetus Heart Rate Present A 149 Fetus Movement A Yes Comments No ob concerns. BPP 8/8, DIANE 7.7, Pt desires IOL at [facility], plan to schedule on 12/22. Menstrual History Last Menstrual Date Menses Monthly On Bcp Conception Prior Menses Frequency Hcg Plus Date Menarche Onset Age Genetic Screening And Infection History Question Response Note Patient's Age Will Be 35 Years Or Older At Estim ated Date of Delivery false Personal or Family History o f Neural Tube Defect (Meningomyelocele, Spina Bifida, Or Anencephaly) false Personal or Family History of Congenital Heart D efect false Maternal Metabolic Disorder (eg, Type 1 Diabetes , PKU) false Recurrent Loss, Or A Stillbirth false Patient Or Partner Has History Of Genital Herpes false Prior GBS-infected child false History of HIV false History of Hepatitis false Genetic Carrier Screen positive false Delivery Information Delivery Date Delivery Type Labor Anesthesia Weeks Gestation Incision Type Labor Labor Length Hrs Delivered By Post Complications Tubal Sterilization Discharge Date Comments Discharge Information Feeding Method Contraceptive Method Maternal HG B and HCT Levels
--- OUTSIDE RECORDS SUMMARY | 2025-01-04 13:38 | XMS_ITS | Data Portability ---
Author Organization [facility], [facility] Address [address] [place] [address] Assessment Encounter Date Assessment Date Assessment LastModified by Organization Details LastModified Time 04/09/2024 04/09/2024 Patient is a 23-year-old female who presents to the office complaining of epigastric pain radiating to her right upper quadrant associated with nausea and occasional vomiting. Pain is happen very often every day. She has been in the ER multiple times due to same reason. She was found to have gallstones. Patient has symptomatic cholelithiasis. I offered laparoscopic cholecystectomy explained risks and benefits alternatives including but not limited to bleeding, infection, common bile duct injury, bile leak, sepsis disability even and informed consent was obtained. Patient voiced understanding and wished to proceed. All questions were answered. [email or web address] Not available 04/09/2024 12:14:04 Plan of Treatment Reminders Order Date Submit Date Provider Last Modified By Organization Details Last Modified Time Details Appointments None record ed. Lab None record ed. Referral None record ed. Procedures None record ed. Surgeries None record ed. Imaging None record ed. Medication Orders None record ed. Patient TargetsNo targets recorded. Patient InstructionsNo instructions recorded. Reason for Referral None Reported. Results Created Date Observation Date Name Description Value Unit Range Abnormal Flag Note LastModifiedBy Organization Detail LastModifiedTime 04/08/20 24 US, abdom en No observ ation record ed. [email or web address] Not Available 2023 15:28:01 Result Notes None recorded. Problems Name Problem SNOMED Code Status Onset Date Resolution Date Notes Provider Name and Address Organization Details Recorded Time Cholelithiasis without obstruction 46299711 Active 2023 Carmen Durham MD [address] [place], [address], [facility] 10:59:41 Problem Notes None recorded. Procedures Surgical History None recorded. Imaging Results Imaging Date Name Status LastModified by Organiz ation Details LastModified Time 04/08/2024 US, abdomen completed [place] [address] Information n ot available 04/08/2024 15:28:01 Procedure Notes None recorded. Medical Equipment None Reported. Allergies No known drug allergies Medications Name Sig Start Date Stop Date Status Note LastModified by Organization Details LastModified Time hydrocodone 5 mg-acetaminop hen 325 mg tablet TAKE 1 TABLET BY MOUTH EVERY 6 HOURS NEEDED 04/09 completed Not Available Not Available Not Available Vitals Date Recorded Body weight Body mass index (BMI) Body height Heart rate Oxygen saturation Oxygen saturation in Arterial blood by Pulse oximetry Body temperature Systolic blood pressure Diastolic blood pressure Provider Name and Address Organization Details Last Updated DateTime 215619. 82 g 41.8 kg/m2 162.56 cm 74 /min 98 % 98 % 97.8 [degF] 118 mm[Hg] 78 mm[Hg] Jonna Goldsmith [facility] 10:26:31 Social History Question Answer Notes LastModified by Organizat ion Details LastModified Time Tobacco Smoking Status Current Every Day Smoker vape Jonna Goldsmith [facility] 04/09/2024 10:28:07 What Is Your Level Of Alcohol Consumption? [facility] Information not available 04/09/2024 What Is Your Level Of Caffeine Consumption? [facility] Information not available 04/09/2024 What Type Of Diet Are You Following? REGULAR [place] [address] Information not available 04/09/2024 Which Illicit Or Recreational Drugs Have You Used? [email or web address] Information not available 04/09/2024 Are You In An Abusive/frighteni ng Relationship? No Information not available 04/09/2024 Do You Feel Safe At Home Yes Information not available 04/09/2024 Do You Feel Hopeless Or Helpless No [email or web address] Information not available 04/09/2024 Have You Had Thoughts Of Suicide? No Information not available 04/09/2024 Are You Having Any Suicidal Thoughts Now? No Information not available 04/09/2024 Have You Previously Attempted Suicide? No [place] [address] Information not available 04/09/2024 Have You Fallen In The Last 3 Months? No [place] [address] Information not available 04/09/2024 What Was The Date Of Your Most Recent Tobacco Screening? 04/09/2024 [place] [address] Information not available 04/09/2024 What Is Your Relationship Status? Single [place] [address] Information not available 04/09/2024 Do You Use Any Illicit Or Recreational Drugs? Yes [place] [address] Information not available 04/09/2024 Have You Recently Traveled Abroad? No [place] [address] Information not available 04/09/2024 Sex: Female Functional Status None recorded. Mental Status None recorded. Family History Nothing Reported. Medical History No medical history recorded. Gynecological HistoryNo gynecological history recorded. Obstetrics History GPAL:G 0 P 0 0 0 0 Past Encounters Encounter ID Performer Location Encounter Start Date Encounter Closed Date Diagnosis/Indication Diagnosis SNOMED-CT Code Diagnosis ICD10 Code Diagnosis Note [id number] Neto Guillory MD [address] [address] 04/09/2024 10:16:44 04/09/2024 18:11:49 Health Concerns Section Related Observation LastModified by Organization Detai ls LastModified Time None Recorded Concern Status LastModified by Organization Details LastModified Time None Recorded Advance Directives Directive None Recorded Payers Encounter Date Sequence Insurance Name Policy Number Policy Arana Covered Member ID Arana Member ID Guarantor Name 04/09/2024 SLIDING FEE SCHEDULE - [facility] Notes Date Note Type Note Provider Name and Address Organization Details Recorded Time 04/09/2024 text/html Patient is a 23-year-old female who presents to the office complaining of epigastric pain radiating to her right upper quadrant associated with nausea and occasional vomiting. Pain is happen very often every day. She has been in the ER multiple times due to same reason. She was found to have gallstones. Neto Guillory MD [address] [place] [address], [phone], [facility] 04/09/2024 12:14:23 OBGyn Episode No OBEpisode recorded.
== END 2025-01-04 13:13 | disposition short-term general hospital (02) ==
PROVIDERS: Emergency Provider Nurse Practitioner Family
DX: O86.01 Infection of obstetric surgical wound, superficial incisional site (principal); L03.311 Cellulitis of abdominal wall
CPT/HCPCS: 99202; G0463